=== PATIENT | female | born 1955 | race Caucasian/White ===

== ENCOUNTER → 2021-10-30 10:28 | Outpatient (CLI) | payer BC, SELFPAY ==
--- NOTE | ~2021-10-30 | XR_ITS ---
EXAMINATION: XR knee LT 2V DATE: 10/30/2021 10:52 INDICATION: Left knee pain. TECHNIQUE: 2 views of left knee standing were obtained. COMPARISON: None. FINDINGS: Bone alignment is normal. No fracture. There is mild tricompartmental osteoarthritis charac terized by tiny osteophytes. No joint space narrowing. There is a small knee joint effusion. IMPRESSION: 1. Mild left knee osteoarthritis. 2. Small left knee joint effusion. Reviewed, dictated and finalized at location A. [employer]SEM[employer]
== END ==
PROVIDERS: PCP Nurse Practitioner Family; Visit Provider Nurse Practitioner Family
DX: M25.562 Pain in left knee (principal); M17.12 Unilateral primary osteoarthritis, left knee; M25.462 Effusion, left knee
CPT/HCPCS: 73560

== ENCOUNTER → 2021-12-22 17:12 | Outpatient (CLI) | payer BC, SELFPAY ==
--- NOTE | ~2021-12-22 | MR_ITS ---
EXAMINATION: MR knee LT wo con DATE: 12/22/2021 18:03 INDICATION: Left knee pain TECHNIQUE: Magnetic resonance imaging (MRI) of the left knee was performed without intravenous contra st. Sequences included coronal PD-weighted FSE, coronal PD-weighted FS FSE, sagittal T2-weighted FSE , sagittal PD-weighted FS FSE and axial PD weighted fat saturated FSE. COMPARISON: Left knee radiographs dated 11/09/2021 FINDINGS: Medial compartment: Complex tear centered at the junction of the body and posterior horn of the medial meniscus which inc ludes both a vertical either radial or parrot beak configuration tear plane as well as and longitudin al horizontal component extending to the superior articular surface extending laterally from the vert ical tear into the medial side of the posterior horn. Partial-thickness chondral ulceration and deep fissuring along the anterior weightbearing medial femoral condyle with mild underlying cortical irreg ularity and edema-like marrow signal change. Additional partial thickness chondral ulceration along t he medial margin of the medial tibial plateau. There is extensive subarticular edema-like signal sauceda ge underlying much of the medial tibial plateau which appears disproportionate to the relatively mild appearing chondromalacia. There does however. The subtle concavity to the articular cortex which sug gests subarticular stress fracture potentially related to altered stress distribution resulting from the meniscal tear. Lateral compartment: Lateral meniscus is normal. Articular cartilage is normal. Patellofemoral compartment: Deep chondral fissure with underlying subarticular edema-like marrow signal change at the patellar ap ical ridge. Trochlear cartilage is normal. Ligaments and tendons: Anterior and posterior cruciate ligaments are normal. The medial collateral ligament and fibular jen ateral ligament complex are normal. Mild distal quadriceps tendinopathy. Patellar tendon is normal. T he visualized medial and lateral hamstring tendons as well as the iliotibial band are normal. Fluid: Physiologic amount of fluid in the joint space. No loose osteochondral bodies identified. Moderate-si zed likely partially ruptured Vásquez's cyst measuring 5.3 cm craniocaudally and 1.8 x 1.1 cm in nura l transaxial dimensions with small amount of nonloculated fluid tracking caudally along the periphery of the medial head of the gastrocnemius muscle and the pes anserinus.. Osseous/other: Bone alignment is normal. No pathologic marrow replacing process. IMPRESSION: 1. Complex medial meniscal tear. 2. Prominent marrow edema along the medial aspect of the medial tibial plateau which appears dispropo rtionate to the relatively mild chondromalacia and with subtle concavity to the articular cortex sugg esting minimal depression of a subarticular stress fracture potentially related to altered stress dis tribution resulting from the meniscal tear. 3. Mild osteoarthritis in the medial and patellofemoral compartments with high-grade chondromalacia a t the patellar apical ridge and more extensively along the anterior weightbearing medial femoral cond yle. 4. Likely partially ruptured moderate-sized Vásquez's cyst. Reviewed, dictated and finalized at location A. IMPRESSION: 1. Complex medial meniscal tear. 2. Prominent marrow edema along the medial aspect of the medial tibial plateau which appears disproportionate to the relatively mild chondromalacia and with s ubtle concavity to the articular cortex suggesting minimal depression of a suba rticular stress fracture potentially related to altered stress distribution res ulting from the meniscal tear. 3. Mild osteoarthritis in the medial and patellofemoral compartments with high- grade chondrom
== END ==
PROVIDERS: PCP Family Medicine; Visit Provider Nurse Practitioner Family
DX: S83.242A Other tear of medial meniscus, current injury, left knee, initial encounter (principal); M17.12 Unilateral primary osteoarthritis, left knee; M71.22 Synovial cyst of popliteal space [Baker], left knee
CPT/HCPCS: 73721

== ENCOUNTER 2022-02-12 10:05 | Outpatient (CLI) | payer BC, SELFPAY ==
--- NOTE | 2022-02-12 10:24 | ECG_ITS ---
Measurements Intervals [place] Rate: 70 P: 48 CO: 197 QRS: -11 QRSD: 124 T: 113 QT: 421 QTc: 456 Interpretive Statements SINUS RHYTHM LEFT BUNDLE BRANCH BLOCK ABNORMAL ECG NO PREVIOUS ECG AVAILABLE FOR COMPARISON Electronically Signed On 02-12-2022 14:37:35 CDT by Jelani Zaidi M.D.
[2022-02-12 11:37] LABS: Anion Gap 5 mmol/L (8-16); Blood Urea Nitrogen 20 mg/dL (7-17); Calcium 8.6 mg/dL (8.4-10.2); Carbon Dioxide 27 mmol/L (22-30); Chloride 107 mmol/L (98-107); Estimated Glomerular Filt Rate > 60; Glucose 94 mg/dL (65-110); Potassium 4.1 mmol/L (3.4-5.0); Sodium 139 mmol/L (137-145)
== END 2022-02-12 10:06 | disposition home or self-care (01) ==
LOC: ANHSURGERY 10:13
PROVIDERS: Anesthesiology; PCP Family Medicine; Visit Provider Orthopaedic Surgery
DX: Z01.818 Encounter for other preprocedural examination (principal); I10 Essential (primary) hypertension; R94.31 Abnormal electrocardiogram [ECG] [EKG]
CPT/HCPCS: 36415; 80048; 93005

== ENCOUNTER 2022-03-14 08:30 | Outpatient (CLI) | payer BC, SELFPAY ==
--- NOTE | 2022-03-14 09:02 | ECHO_ITS ---
Patient Info Name: Arti Rodas Age: 66 years : 1955 Gender: Female Ht: 60 in Wt: 155 lbs BSA: 1.75 m2 HR: 66 bpm BP: 133 / 73 mmHg Technical Quality: Good Exam Date: 03/14/2022 9:37 AM Exam Location: [facility] Patient Status: Outpatient Admit Date: 03/14/2022 Staff Ordering Physician: More Frazier [employer] Appraiser: Shayy Gutiérrez RCS Attending Provider: More Frazier Referring Physician: Karin CRENSHAW; Exam Type: CA echo doppler color flow Study Info Indications R01.1 - Cardiac murmur, unspecified Complete two-dimensional, color flow and Doppler transthoracic echocardiogram is performed. Summary 1. Complete two-dimensional, color flow and Doppler transthoracic echocardiogram is performed. 2. Left ventricular chamber dimension is normal. 3. Left ventricular systolic function is normal, estimated at 60-65%. 4. The left ventricular diastolic function is grade I diastolic dysfunction. 5. E/e' 8 is minimally elevated. 6. Global longitudinal strain is normal at -20.0%. 7. There is mild aortic valve sclerosis. 8. There is trace aortic valve regurgitation. 9. There is trace mitral valve regurgitation. 10. There is trace tricuspid valve regurgitation. 11. No pulmonary hypertension, estimated pulmonary arterial systolic pressure is 28 mmHg. Left Ventricle E/e' 8 is minimally elevated. Global longitudinal strain is normal at -20.0%. Left ventricular chamber dimension is normal. Left ventricular systolic function is normal, estimated at 60-65%. The left ventricular diastolic function is grade I diastolic dysfunction. Right Ventricle Right ventricular systolic function is normal and with normal TAPSE 2.3 cm. Right ventricular chamber dimension is normal. Left Atria Left atrial chamber dimension is normal. Right Atria Right atrial chamber dimension is normal. Aortic Valve The aortic valve is trileaflet. There is mild aortic valve sclerosis. There is no aortic valve stenosis. There is trace aortic valve regurgitation. Pulmonic Valve There is no pulmonic regurgitation. Mitral Valve There is no mitral valve stenosis. There is trace mitral valve regurgitation. Tricuspid Valve There is trace tricuspid valve regurgitation. No pulmonary hypertension, estimated pulmonary arterial systolic pressure is 28 mmHg. Pericardium/Pleural There is no pericardial effusion. Inferior Vena Cava Normal inferior vena cava with >50% collapse upon inspiration consistent with normal right atrial pressure, 5 mmHg. Aorta The aortic root size at the sinus of Valsalva is normal. Left Ventricular Outflow Tract Name Value Normal LVOT 2D LVOT Diameter 2.0 cm LVOT Doppler LVOT Peak Gradient 6 mmHg LVOT Mean Gradient 3 mmHg LVOT VTI 26 cm LVOT VTI/AV VTI Ratio 0.6 LVOT Stroke Volume 85 ml LVOT CO 17.3 l/min LVOT CI 9.9 l/min/m2 Pulmonic Valve
== END 2022-03-14 08:31 | disposition home or self-care (01) ==
PROVIDERS: PCP Family Medicine; Visit Provider Nurse Practitioner Family
DX: R01.1 Cardiac murmur, unspecified (principal); I70.0 Atherosclerosis of aorta
CPT/HCPCS: 93306

== ENCOUNTER 2022-04-26 08:38 | Outpatient (CLI) | payer BC, SELFPAY ==
--- NOTE | ~2022-04-26 | NM_ITS ---
EXAMINATION: NM wanda stress w perfusion DATE: 04/26/2022 13:24 INDICATION: Dyspnea TECHNIQUE: Rest images were obtained following intravenous administration of 10.351 mCi Tc99m tetrofo smin (Myoview). The patient was infused intravenously with Lexiscan (Regadenoson). Then, 32 mCi Tc99m tetrofosmin (Myoview) was administered intravenously, and stress images were obtained. Data was romulo nstructed into short axis and horizontal and vertical long axis SPECT images. Gated SPECT images were also obtained. COMPARISON: None. FINDINGS: There is no definite reversible or fixed perfusion abnormality to suggest ischemia or infar ction. There is normal left ventricular chamber size, wall motion and ejection fraction. Left ventr icular ejection fraction measures >70%. IMPRESSION: 1. Normal myocardial perfusion at rest and during stress. 2. Left ventricular ejection fraction measuring >70%. Reviewed, dictated and finalized at location A.
--- NOTE | 2022-04-26 08:47 | EST_ITS ---
Patient Info Name: Arti Rodas Age: 67 years : 1955 Gender: Female Ht: 61 in Wt: 158 lbs BSA: 1.78 m2 Exam Date: 04/26/2022 9:55 AM Exam Location: [facility] Stress Patient Status: Outpatient Admit Date: 04/26/2022 Staff Ordering Physician: John Hernandez DO Attending Provider: John Hernandez DO Exercise Technologist: Sarah Lala RDCS Exercise Physician: John Hernandez DO Exam Type: CA stress wanda w NM Study Info Indications R06.09 - Other forms of dyspnea A regadenoson stress test was performed. Summary 1. 1. Inconclusive lexiscan stress test for ischemic ST changes by ECG criteria due to baseline LBBB. 2. 2. Baseline hypertension. 3. 3. Nuclear scan to follow and will be reported separately. Please correlate with it. 4. 4. Patient informed of the above results. Protocol: Lexiscan Stress ECG Details Stage: REST Duration (min): 1 min : 47 sec HR (bpm): 64 SBP (mmHg): 152 DBP (mmHg): 71 Stage: REST Duration (min): 23 min : 50 sec HR (bpm): 88 SBP (mmHg): 152 DBP (mmHg): 71 Stage: STAGE 1 Duration (min): 0 min : 59 sec HR (bpm): 116 SBP (mmHg): 152 DBP (mmHg): 71 Stage: RECOVERY Duration (min): 1 min : 0 sec HR (bpm): 115 SBP (mmHg): 143 DBP (mmHg): 60 Stage: RECOVERY Duration (min): 2 min : 0 sec HR (bpm): 109 SBP (mmHg): 153 DBP (mmHg): 63 Stage: RECOVERY Duration (min): 3 min : 0 sec HR (bpm): 106 SBP (mmHg): 146 DBP (mmHg): 62 Stage: RECOVERY Duration (min): 4 min : 0 sec HR (bpm): 94 SBP (mmHg): 146 DBP (mmHg): 62 Stage: RECOVERY Duration (min): 5 min : 0 sec HR (bpm): 93 SBP (mmHg): 146 DBP (mmHg): 62 Stage: RECOVERY Duration (min): 5 min : 18 sec HR (bpm): 93 SBP (mmHg): 136 DBP (mmHg): 62 Rest HR: 88 bpm Peak HR: 119 bpm Rest Sys BP: 152 mmHg Peak Sys BP: 153 mmHg Max Pred HR: 154 bpm % Max Pred HR: 77 % Target HR: 131 bpm Max RPP: 18,207 bpm*mmHg Termination Reason: Completed protocol Cardiac Symptoms: Shortness of breath Total Time: 1 min : 0 sec Rest Bennett BP: 71 mmHg Peak Bennett BP: 63 mmHg Total Dose: 0.4 mg Resting ECG Sinus rhythm, LBBB. Stress ECG No ST changes. Arrhythmias None. Report Signatures
== END 2022-04-26 08:39 | disposition home or self-care (01) ==
PROVIDERS: PCP Family Medicine; Visit Provider Internal Medicine Cardiovascular Disease
DX: R06.09 Other forms of dyspnea (principal)
CPT/HCPCS: 78452; 93017; A9502; J2785

== ENCOUNTER 2022-05-07 08:15 | Outpatient (CLI) | payer BC, SELFPAY ==
[2022-05-07 09:05] LABS: Anion Gap 11 mmol/L (8-16); Blood Urea Nitrogen 20 mg/dL (7-17); Calcium 9.1 mg/dL (8.4-10.2); Carbon Dioxide 24 mmol/L (22-30); Chloride 104 mmol/L (98-107); Estimated Glomerular Filt Rate > 60; Glucose 107 mg/dL (65-110); Sodium 139 mmol/L (137-145)
== END 2022-05-07 08:16 | disposition home or self-care (01) ==
LOC: ANHSURGERY 08:22
PROVIDERS: Anesthesiology; PCP Family Medicine; Visit Provider Orthopaedic Surgery
DX: Z01.818 Encounter for other preprocedural examination (principal); Z79.899 Other long term (current) drug therapy
CPT/HCPCS: 36415; 80048

== ENCOUNTER 2022-05-09 00:20 | Day surgery (SDC) | payer BC, OTHER, SELFPAY ==
[2022-05-03 14:46] VITALS: BMI 29.6
--- NOTE | 2022-05-03 14:51 | PC.NURSE ---
Report to the Outpatient Waiting Room, entrance under the green pavilion located off [facility], at time _0900_ on date _05/09/22_. OR Time: _1100_. Time changes happen often and if your time is changed the preop area will call you the afternoon before. - You and your visitor will be asked to self-screen and do not enter if you have any COVID symptoms. - Only one visitor and NO children visitors are allowed at this time. - The patient visitor is requested to leave or wait in car when not with patient due to restrictions. - A mask is required within the hospital. Patients may have clear liquids (water, carbonated beverages, clear teas, apple juice) until 3 hours prior to surgery ( 0800 AM) with a maximum of 20 ounces. - No food from midnight until time of surgery - Infants may have breast milk until 4 hours before surgery, formula 6 hours prior to surgery. - Children will be allowed to drink immediately following surgery. If applicable, please bring a bottle or sippy cup to assist with drinking. Juice, water, soda, and popsicles are readily available. For infants on formula, please bring formula the day of surgery. Pacifiers are allowed. Take the following medications with a SIP of water the morning of surgery: _TYLENOL IF NEEDED_ Medications to discontinue _MELOXICAM PER DR. RODRIGEZ'S INSTRUCTIONS_ Please no make-up, nail croatian, hairspray, perfume, deodorant, or body powder the day of surgery. No jewelry (including any body piercings) or valuables the day of surgery, leave them at home. Please take a shower or bath the night before, or the morning of, surgery with an antibacterial soap. Wear comfortable, loose fitting clothing. Children are encouraged to wear pajamas. - Jewelry must be removed prior to entering the operating room. Rings and piercings that are not removed may be cut off. - The hospital will not accept responsibility for valuables. - Please leave all valuables, including medications, at home the day of surgery. If you are going home after surgery, a licensed driver guide must drive you home. - NO public transportation without another adult. - We recommend that an adult stay with you for 24 hours following discharge. - We also recommend that you do not drive, make important decision, drink alcoholic beverages, or take any drugs that were not prescribed by your health care provider for at least 24 hours after your discharge time. For Pediatric surgeries, we recommend two adults accompany the child home (only one inside the building at this time). Follow any additional instructions given to you from your surgeon. If you or anyone in your household have experienced Covid symptoms in the past week, please notify your surgeon or the nurse liaison at the phone number below for possible testing. Telephone instructions given to _PT_and asked if any additional questions and then verbalized understanding. Patient advised to call surgeon office or pre surgery nurse liaison [phone] if any additional questions.
[2022-05-09] VITALS (10 sets, daily range): BP systolic 136–165; BP diastolic 56–86; PULSE 54–78; RESP 10–20; TEMP 36.9–37.1; O2SAT 98–100
--- NOTE | 2022-05-09 07:13 | WPDHPUPDATE1 ---
History and Physical Update Update Date/Time: 05/09/22 07:13 History and Physical has been reviewed, including an updated exam of the patient. There are NO changes in the patient's condition. Risks, benefits, and alternatives have been discussed and questions answered. Patient agrees to proceed with procedure.
--- NOTE | 2022-05-09 07:43 | WPDANESEPPF ---
Anes - Initial Pre Proc Eval Procedure: Operation Date: 05/09/22 11:00 Proposed Procedures p Left Knee Arthroscopy - Hussain Rutherford MD Date/Time: 05/09/22 07:43 Surgeon: Hussain Rutherford MD Pre Op Diagnosis: Lt Knee Medial Meniscus Tear Patient Data Age: 67 Gender: F Height: 1.54 m Weight: 70 kg Allergies Allergy/AdvReac Type Severity Reaction Status Date / Time No Known Allergies Allergy Unknown Verified 05/03/22 14:46 Home Medications Medication Instructions Recorded Confirmed Type adalimumab 40 mg/0.8 mL 40 mg subcut [id number] 09/21/19 05/03/22 History subcutaneous syringe kit (Humira) acetaminophen 650 mg 1,300 mg PO Q12H PRN Pain 02/02/22 05/03/22 History tablet,extended release losartan 100 1 tablet PO QAM hypertension 02/02/22 05/03/22 History mg-hydrochlorothiazide 12.5 mg tablet (Hyzaar) meloxicam 15 mg tablet 15 mg PO DAILY PRN Pain 02/02/22 05/03/22 History psyllium husk 3.4 gram/5.4 gram 1 tbsp PO DAILY PRN Constipation 02/02/22 05/03/22 History oral powder (Metamucil) omega 7-mmy-nol-fish oil 1,000 mg 2 cap PO DAILY 05/03/22 05/03/22 History (120 mg-180 mg) capsule (Fish Oil) Patient hx anesthesia problems: none Family hx anesthesia problems: none Results Review: All pre-operative results and documents have been reviewed as part of the pre-operative evaluation. [facility] Past Medical History Medical History (Updated 05/03/22 @ 11:54 by AMY Webb) Abnormal EKG Abnormality of heart beat Acute meniscal tear of knee BMI 30.0-30.9,adult ROYAL (dyspnea on exertion) Essential (primary) hypertension Follicle cyst History of adverse reaction to anesthesia Hypersomnia Hypertension Kidney stones LBBB (left bundle branch block) Left knee pain Medial meniscus tear Murmur Ocular hypertension, unspecified eye DONNA (obstructive sleep apnea) Preop cardiovascular exam Preoperative clearance Psoriasis Psoriasis Wears glasses Surgical History Surgical History History of cholecystectomy History of endometrial ablation History of extraction of renal calculus Family History Family History Father Alzheimers disease Mother Diabetes mellitus Heart disease Sibling Diabetes mellitus Gout COVID-19 Sibling Hypertension Other Arthritis Social History Social History Smoking status: Never smoker Second hand tobacco smoke exposure: No Alcohol intake: never Substance use: never Substance use type: does not use Living arrangements: with family Additional living arrangements comments: [facility] Additional occupation/education comments: [employer]. Gender identity (if verbalized by the patient): Female Spiritual care concerns: No Anes - Eval Final PreProcedure Day of Procedure 05/09/22 07:43 Patient weight: overweight Heart: regular rate and rhythm Lungs: clear to auscultation Airway: Mallampati scale class II Neurological: alert and oriented Last oral intake: >/= 8 hours ASA classification: III Emergent: no Anesthetic plan: proceed Anesthesia type and monitoring: general LMA and standard monitoring Results Review: All pre-operative results and documents have been reviewed as part of the pre-operative evaluation. Informed Consent: The patient's anesthetic plan and its attendant risks and benefits were discussed with the patient/family/POA. Questions were solicited and answers provided to the satisfaction of the patient/family/POA.
[2022-05-09] MEDS: LACTATED RINGERS 1,000 ML 30 ML IV CONT (10:20)
[2022-05-09] MEDS: ACETAMINOPHEN 500 MG TABLET 1000 MG PO (10:20)
[2022-05-09] MEDS: CELECOXIB 200 MG CAPSULE PO (10:20)
[2022-05-09] MEDS: SCOPOLAMINE 1.5 MG PATCH TRANSDERM (10:56)
[2022-05-09] MEDS: ceFAZolin 2 GM/D5W 50 ML 2 GM/50 ML BAG IVPB (10:59)
[2022-05-09] MEDS: BUPIVACAINE HCL 0.5% PF 30 ML VIAL INFILTRATE (11:28)
--- NOTE | 2022-05-09 12:36 | W.PM.PROC2 ---
Procedure Note - Detailed Date of Procedure 05/09/22 Pre-op Diagnosis Lt Knee Medial Meniscus Tear Post-op Diagnosis Same Procedure Performed LEFT KNEE SCOPE Surgeon Hussain Rutherford MD Anesthesia General Description of Procedure PATIENT WAS TAKEN TO THE OR. LEFT LEG WAS PREPPED AND DRAPED STERILE. TROCARS WERE PLACED IN THE USUAL FASHION. CAMERA WAS INTRODUCED. THERE WAS CHONDROMALACIA TO THE PATELLA FEMORAL JOINT. THERE WAS A LOT OF SYNOVITIS IN ALL COMPARTMENTS. THE MEDIAL COMPARTMENT SHOWED CHONDROMALACIA TO THE MEDIAL FEMORAL CONDYLE. A SHAVER WAS USED TO PREFORM A CHONDROPLASTY. THERE WAS A COMPLEX MEDIAL MENISCUS TEAR. THE TEAR WAS RESECTED WITH A BITER AND A SHAVER DOWN TO A SMOOTH BASE. ABOUT 30% OF THE MENISCUS WAS REMOVED. THE ACL WAS INTACT. THE LATERAL MENISCUS WAS NOT TORN. THE LAT COMPARTMENT HAD MINIMAL CHONDROMALACIA. A SYNOVECTOMY WAS PREFORMED WELL. THE PATELLO FEMORAL JOINT UNDERWENT CHONDROPLASTY. THERE WAS GRADE 2 CHONDROMALACIA IN PART OF THE PATELLA. SYNOVECTOMY WAS PREFORMED IN THE SUPERIOR MEDIAL COMPARTMENT. THE WOUNDS WERE APPROXIMATED WITH 4.0 NYLON. STERILE DRESSING WAS APPLIED. PATIENT WAS EXTUBATED. Estimated Blood Loss -5.0 Complications No immediate complications Condition Stable Disposition PACU
[2022-05-09] MEDS: oxyCODONE HCL (*CRX) 5 MG TAB IR PO (13:39)
== END 2022-05-09 14:37 | disposition home or self-care (01) ==
PROVIDERS: PCP Family Medicine; Visit Provider Orthopaedic Surgery
PROC: (CPT 29870; principal; 2022-05-09 11:00)
DX: M23.332 Other meniscus derangements, other medial meniscus, left knee (principal); M94.262 Chondromalacia, left knee; M65.862 Other synovitis and tenosynovitis, left lower leg; I10 Essential (primary) hypertension; G47.33 Obstructive sleep apnea (adult) (pediatric); L40.9 Psoriasis, unspecified; I44.7 Left bundle-branch block, unspecified; Z79.899 Other long term (current) drug therapy
CPT/HCPCS: 29881; A9270; J0690; J1100; J2405; J2704; J3010; J7120

== ENCOUNTER 2022-06-05 07:18 | Outpatient (CLI) | payer BC, OTHER, SELFPAY ==
--- NOTE | 2022-06-25 12:12 | WPDHOMESLEEP ---
Sleep Study - Home Unattended Date of Study: 06/05/22 Ordering Provider: John Hernandez DO Interpreting Provider: Cait Barillas DO Home Sleep Study Type: Watch PAT Height: 1.55 m Weight: 72.575 kg Body Mass Index: 30.2 Neck Circumference (inches): 13.75 [place]: 8 Reason for Sleep Study Snoring, daytime hypersomnia Sleep History The patient is a 67-year-old female with hypertension and psoriasis that had a sleep study ordered by her backup operator for evaluation of sleep apnea. The patient denies awakening from sleep short of breath. She rarely awakens at night with heartburn, belching or cough. She frequently snores but is rarely loud enough that others complain. She occasionally has trouble sleeping when she has a cold. She denies waking up gasping for air throughout the night. She occasionally has breathing problems at night observed by herself or others. She denies sweating excessively at night. She rarely has heart palpitations or irregular heartbeats during the night. She occasionally falls asleep during the day but never while driving. He denies sleep paralysis and cataplexy. She denies having trouble at school or work due to sleepiness. She occasionally experiences vivid dreamlike scenes upon awakening or falling asleep. She denies feeling afraid of going to sleep. She rarely has nightmares. She occasionally remembers her dreams. She occasionally has thoughts racing through her mind. She denies feeling sad or depressed. She rarely has anxiety. She denies having muscular tension. She denies noticing parts of her body jerk. She rarely kicks during the night. She denies having crawling and aching feelings in her legs but will rarely has leg pain during the night. She occasionally grinds her teeth during sleep but rarely awakens with morning jaw pain. She is rarely bothered by pain during the day and never awakened by pain during the night. She rarely wakes up feeling stiff in the morning. She rarely wakes up with sore or achy muscles. She rarely wakes up with pain in the neck, spine or other joints. She goes to bed between 10-11 p.m. on weekdays and between midnight to 1:00 a.m. on the weekends. It takes her 20 minutes to fall asleep. He wakes up 2-3 times throughout the night to urinate. She is able to fall back asleep within 10-15 minutes. She wakes up at 4:40 a.m. on weekdays and between 7-8 a.m. on the weekends. She typically gets 6-7 hours of sleep per night. She will stay in bed for 10-15 minutes after waking up in the morning. She currently lives with her . She does not consume any caffeinated beverages within 2 hours of bedtime. She will engage in physical exercise before bedtime. She will read before falling asleep. She will take naps in the afternoon or the evening and they are refreshing. He drinks 1 16 oz caffeinated tea occasionally. She denies tobacco, alcohol and recreational drug use. [facility] Past Medical History Medical History Abnormal EKG Abnormality of heart beat Acute meniscal tear of knee BMI 30.0-30.9,adult ROYAL (dyspnea on exertion) Essential (primary) hypertension Follicle cyst History of adverse reaction to anesthesia Hypersomnia Hypertension Kidney stones LBBB (left bundle branch block) Left knee pain Medial meniscus tear Murmur Ocular hypertension, unspecified eye DONNA (obstructive sleep apnea) Preop cardiovascular exam Preoperative clearance Psoriasis Psoriasis Wears glasses Surgical History Surgical History History of cholecystectomy History of endometrial ablation History of extraction of renal calculus Family History Family History Father Alzheimers disease Mother Diabetes mellitus Heart disease Sibling Diabetes mellitus Gout COVID-19 [place]
[2022-06-25 12:28] VITALS: BMI 30.2
== END 2022-06-06 13:52 | disposition home or self-care (01) ==
PROVIDERS: PCP Family Medicine; Visit Provider Internal Medicine Cardiovascular Disease
DX: G47.10 Hypersomnia, unspecified (principal)
CPT/HCPCS: 95800

== ENCOUNTER 2023-05-06 08:32 | Outpatient (CLI) | payer MEDICARE, OTHER, SELFPAY ==
[2023-05-06 09:31] LABS: Alanine Aminotransferase 28 U/L (6-35); Creatine Kinase 165 U/L (30-135)
== END 2023-05-06 08:33 | disposition home or self-care (01) ==
PROVIDERS: PCP Family Medicine; Visit Provider Nurse Practitioner Family
DX: Z79.899 Other long term (current) drug therapy (principal)
CPT/HCPCS: 36415; 82550; 84460

== ENCOUNTER → 2023-07-04 10:03 | Outpatient (CLI) | payer MEDICARE, OTHER, SELFPAY ==
--- NOTE | ~2023-07-04 | DEXA_ITS ---
Bone Density Report Name: MARINA PALMA Age: 68 Sex: Female Ethnicity: White Date of : 1955 Indication: postmenopausal; screening for osteoporosis; parental hip fracture; prior fracture; Referring Provider: Lorenza Figueroa Study: Bone densitometry was performed. Exam Date: July 04, 2023 Accession number: [id number] Bone Density: Region BMD T-score Z-score Classification AP Spine (L1-L4) 0.854 -1.8 0.2 Osteopenia Femoral Neck (Left) 0.666 -1.6 0.0 Osteopenia Total Hip (Left) 0.782 -1.3 0.0 Osteopenia Femoral Neck (Right) 0.847 0.0 1.6 Normal Total Hip (Right) 0.858 -0.7 0.7 Normal Total Hip Mean 0.820 -1.0 0.4 Normal World Health Organization criteria for BMD impression classify patients as: Normal (T-score at or above -1.0), Osteopenia (T-score between -1.0 and -2.5), or Osteoporosis (T-score at or below -2.5). 10-year Fracture Risk(1): Major Osteoporotic Fracture 25% Hip Fracture 2.7% Reported Risk Factors: [place] (), Neck BMD=0.666, BMI=32.1, previous fracture, parental fracture (1) FRAX(R) Version 3.08. Fracture probability calculated for an untreated patient. Fracture probability may be lower if the patient has received treatment. Clinical Information Provided by Patient: Has had a low trauma fracture Parent has had a hip fracture Patient maximum height was 60.5 Menopause Age: 46 Drinks caffeinated beverages Onset of menses at age 14 Number of children 3 Impression: The patient has low bone mass, based on the Total Spine T-score. The patient has an estimated ten-year risk of hip fracture of 2.7% and an estimated ten-year risk of major fracture of 25%, based on the WHO FRAX algorithm. The patient has risk factors, including: parental hip fracture, previous fracture. Discussion: BONE DENSITY IS LOW AT ONE OR MORE SKELETAL SITES. THE PATIENT'S BMD AND CLINICAL RISK FACTORS CONTRIBUTE TO THIS PATIENT'S INCREASED RISK OF FRACTURE. This patient's lowest T-score is low at one or more skeletal sites. It meets the World Health Organization's (WHO) criteria for ?low bone mass? (T-score between -1.0 and -2.5). The patient's 10-year risk of a major osteoporotic fracture as calculated by FRAX exceeds the threshold where pharmacological therapy is recommended by the National Osteoporosis Foundation (NOF). However, all treatment decisions require clinical judgment and consideration of individual patient factors, including patient preferences, comorbidities, previous drug use, risk factors not captured in the FRAX model (e.g., frailty, falls, vitamin D deficiency, increased bone turnover, interval significant decline in bone density) and possible under or overestimation of fracture risk by FRAX. The patient should follow a healthful lifestyle (good nutrition with adequate calc
--- NOTE | ~2023-07-04 | MM_ITS ---
EXAMINATION: MM screening jennie BI w tom HISTORY: Screening TECHNIQUE: Craniocaudal and mediolateral oblique 3-D tomosynthesis images were obtained and synthetic 2-D images were generated. CAD analysis was submitted and interpreted. COMPARISON: No prior mammogram is available for comparison at this institution. BREAST PARENCHYMAL COMPOSITION: There are scattered areas of fibroglandular density. FINDINGS: There is no evidence of suspicious mass, calcification, or architectural distortion to sugg est malignancy in either breast. There has been no suspicious interval change. IMPRESSION: 1. No mammographic evidence of malignancy. 2. Recommend routine screening mammography in one year. BI-RADS Category 1: Negative Reviewed, dictated and finalized at location A. ISITION MARKETING COORDINATOR
== END ==
PROVIDERS: PCP Physician Assistant Medical; Visit Provider Physician Assistant Medical
DX: Z12.31 Encounter for screening mammogram for malignant neoplasm of breast (principal); Z78.0 Asymptomatic menopausal state; M85.89 Other specified disorders of bone density and structure, multiple sites
CPT/HCPCS: 77063; 77067; 77080

== ENCOUNTER 2024-10-05 11:59 | Outpatient (CLI) | payer MEDICARE, OTHER, SELFPAY ==
--- NOTE | 2024-10-05 12:10 | ECG_ITS ---
Test Date: 2024-10-05 12:21:30 Measurements Intervals [place] Rate: 61 P: 49 TN: 190 QRS: -20 QRSD: 137 T: 110 QT: 453 QTc: 459 Interpretive Statements SINUS RHYTHM LEFT BUNDLE BRANCH BLOCK ABNORMAL ECG No previous ECG available for comparison Electronically Signed On 10-05-2024 13:02:57 PUBLIC RELATIONS STUDIES DIRECTOR by John Hernandez D.O.
--- OUTSIDE RECORDS SUMMARY | 2024-10-05 12:27 | XMS_ITS | Clinical Summary ---
Author Organization [facility] [employer] Address [address] [place] [address] Care Team Providers Care Elephant Tamer Name Role Phone Eligio Chapman MD Primary Care Provider [phone] Source Comments [facility] [employer],non-owned Affiliates and Associated Physician Practices is amultiple site organization consisting of ambulatory clinics and hospital sitesin [place], [place], [place] and [place]. This disclosure is being madepursuant to the Care Everywhere program and may not contain all information available regarding this patient. Last updated 18.[employer] Allergies No known active allergies Medications * Be aware that medications may not be up to date on this document. Alwaysverify current medications with the patient. Medication Sig Dispensed Refills Start Date End Date Status losartan-hydroCH LOROthiazide (Hyzaar) 100-12.5 MG tablet Take 1 (one) tablet by mouth once daily 30 tablet 11 09/05/2022 Active rosuvastatin (Crestor) 20 MG tablet Do not take with milk, antacids, or iron.Take or use exactly as directed.Do not take if . 03/15/2023 Active losartan-hydroCH LOROthiazide (Hyzaar) 100-12.5 MG tablet Be careful if taking OTCs.Avoid exposure to sun.Take or use exactly as directed.Do not take if . 11/29/2022 Active alendronate (Fosamax) 70 MG tablet Take on empty stomach.Take only with water.Take with water first thing in AM. Stay up 30 min. 07/08/2023 Active vitamin D (Cholecaciferol) 125 MCG (5000 UT) capsule 07/08/2023 Active adalimumab (Humira, 2 Pen,) 40 MG/0.4ML injectionIndicat ions:Psoriasis Inject 0.4 mL subcutaneously every 14 days 0.8 mL 1 08/27/2024 Active pimecrolimus (Elidel) 1 % creamIndications :Psoriasis Apply to affected area on face BID as needed for rash. 30 day supply. Reasons: Psoriasis 60 g 2 09/18/2024 Active mometasone (Elocon) 0.1 % creamIndications :Psoriasis Apply to affected areas once daily as needed for rash. 30 days supply. 45 g 3 09/18/2024 Active mometasone (Elocon) 0.1 % creamIndications :Psoriasis Apply to affected areas once daily. 30 days supply. 45 g 3 05/06/2023 Discontinue d(Reorder) Active Problems No known active problems Encounters Date Type Department Care Team Description 09/18/2024 1:20 PM DOLL MAKER Office Visit [facility] - Dermatology [address] [place] [phone] Didi Blandon MD Psoriasis (Primary Dx); Encounter for long-term (current) use of high-risk medication 09/18/2024 Travel 08/27/2024 Refill [facility] - General Dermatology [address] , [facility] [address] [place] [address] Didi Blandon MD MEDICATION REFILL from Last 3 Months Social History Tobacco Use Types Packs/Day Years Used Date Smoking Tobacco: Never Assessed Sex and Gender Information Value Date Recorded Sex Assigned at Not on file Gender Identity Not on file Sexual Orientation Not on file Plan of Treatment Upcoming Encounters Date Type Department Care Team (Late st Contact Info) Description 09/23/2025 1:20 PM DOLL MAKER Office Visit [facility] - Dermatology [address] [place] [phone] Didi Blandon MD [address] [place] [address] [address] [place] [address] Health Maintenance Due Date Last Done Comments BONE DENSITY TESTING 1955 COLOGUARD (AGES 45-75) - COL ON CA SCREENING 1955 COLON MONITORING 1955 COLONOSCOPY - COLON CA SCREENING 1955 CT COLONOGRAPHY - COLON CA SCREENING 1955 Colorectal Cancer Screening 1955 FIT - COLON CA SCREENING 1955 FLEX SIG - COLON CA SCREENING 1955 LIPID TESTING 1955 MAMMOGRAM 1955 MEDICARE AWV 12 MONTHS 1955 HEPATITIS C SCREENING 03/24/1974 DTAP/TDAP/TD VACCINES (1 - Tdap) 1975 PNEUMOCOCCAL VACCINE 50+ (1 of 1 - PCV) 2006 ZOSTER VACCINE (1 of 2) 2006 COVID-19 VACCINE (1 - 2023-2 5 season) 2024 INFLUENZA VACCINE (#1) 2024 08/10/2006 DEPRESSION SCREENING 08/26/2024 Respiratory Syncytial Virus (RSV) Vaccine Pt: or over 60 yrs (1 - 1-dose 75+ series) 2031 HEPATITIS B VACCINE Aged Out No longe r eligible based on patient's age to complete this topic HIB VACCINE Aged Out No longer eligi ble based on patient's age to complete this topic HPV VACCINE Aged Out No longer eligi ble based on patient's age to complete this topic MENINGOCOCCAL (Group B) VACCINE Aged Out No longer eligible based on patient's age to complete this topic MENINGOCOCCAL VACCINE Aged Out No milagro ronaldo eligible based on patient's age to complete this topic Procedures Procedure Name Priority Date/Time Associated Diagnosis Comments QUANTIFERON-TB GOLD PLUS 1-TUBE 09/21/2024 9:14 AM DOLL MAKER from Last 3 Months Results * QUANTIFERON-TB GOLD PLUS 1-TUBE (09/21/2024 9:14 AM DOLL MAKER) QuantiFERON TB Gold Plus NEGATIVE NEGATIVE [facility] Comment: Negative test result. M. tuberculosis complex infection unlikely. NIL 0.09 IU/mL [facility] MITOGEN MINUS NIL RESULT 6.51 IU/mL [facility] TB1-NIL 0.10 IU/mL [facility] TB2-NIL 0.01 IU/mL [facility] Comment: The Nil tube value reflects the background interferon gamma immune response of the patient's blood sample. This value has been subtracted from the patient's displayed TB and Mitogen results. Lower than expected results with the Mitogen tube prevent false-negative Quantiferon readings by detecting a patient with a potential immune suppressive condition and/or suboptimal pre-analytical specimen handling. The TB1 Antigen tube is coated with the M. tuberculosis-specific antigens designed to elicit responses from TB antigen primed CD4+ helper T-lymphocytes. The TB2 Antigen tube is coated with the M. tuberculosis-specific antigens designed to elicit responses from TB antigen primed CD4+ helper and CD8+ cytotoxic T-lymphocytes. For additional information, please refer to https://education.[employer]/faq/IZM805 (This link is being provided for informational/ educational purposes only.) Test Performed at: [facility] [address] [place] [address] CORNELIA DAHL MD 09/21/2024 9:14 AM DOLL MAKER 09/21/2024 9:14 AM DOLL MAKER Ddii Blandon MD LAB - CHEMISTR Y ORDERABLES Performing Organization Address City/State/[facility] Co de Phone Number [facility] [address] [place] [address] from Last 3 Months Care Teams Elephant Tamer Relationship Specialty Start Date End Date Eligio Chapman MD [address] [place] [address] PCP - General 07/09/22
--- OUTSIDE RECORDS SUMMARY | 2024-10-05 12:27 | XMS_ITS | Encounter Summary ---
Author Organization [facility] Health Address [facility] [facility] [place] [address] Care Team Providers Care Router Operator Pin Name Role Phone Eligio Chapman MD Primary Care Provider [phone] Reason for Visit * Reason Onset Date Comments MEDICATION REFILL 01/05/2024 Encounter Details Date Type Department Care Team (Late Contact Info) Description 01/05/2024 Refill [facility] - Dermatology [facility] [place] [phone] Didi Blandon MD [address] [place] [address] [place] [phone] MEDICATION REFILL Social History Tobacco Use Types Packs/Day Years Used Date Smoking Tobacco: Never Assessed Sex and Gender Information Value Date Recorded Sex Assigned at Not on file Gender Identity Not on file Sexual Orientation Not on file documented as of this encounter Plan of Treatment Upcoming Encounters Date Type Department Care Team (Late Contact Info) Description 09/23/2025 1:20 PM UNIVERSITY RELATIONS RECRUITER Office Visit [facility] - Dermatology [address] [place] [phone] Didi Blandon MD [address] [place] [address] [place] [phone] documented as of this encounter Visit Diagnoses Diagnosis Psoriasis Other psoriasis documented in this encounter Care Teams Router Operator Pin Relationship Specialty Start Date End Date Eligio Chapman MD [address] [place] [address] PCP - General 07/09/22 documented as of this encounter
--- OUTSIDE RECORDS SUMMARY | 2024-10-05 12:27 | XMS_ITS | Referral Summary ---
Author Organization [facility] [employer] Address [address] [facility] [place] [address] Care Team Providers Care Operations Inspector Name Role Phone Eligio Chapman MD Primary Care Provider [phone] Source Comments [facility] [employer],non-owned Affiliates and Associated Physician Practices is amultiple site organization consisting of ambulatory clinics and hospital sitesin [place], [place], [place] and [place]. This disclosure is being madepursuant to the Care Everywhere program and may not contain all information available regarding this patient. Last updated 18.[facility] [employer] Encounters Date Type Department Care Team Description 09/18/2024 Travel 09/18/2024 1:20 PM DRAFTER (CAD) ELECTRONIC Office Visit [facility] - Dermatology [address] [facility] [address] [facility] [place] [address] Didi Blandon MD Psoriasis (Primary Dx); Encounter for long-term (current) use of high-risk medication 08/27/2024 Refill [facility] - General Dermatology [address], [address] [place] [address] Didi Blandon MD MEDICATION REFILL from Last 3 Months Allergies No known active allergies Medications * [...] d(Reorder) Active Problems No known active problems Social History Tobacco Use Types Packs/Day Years Used Date Smoking Tobacco: Never Assessed Sex and Gender Information Value Date Recorded Sex Assigned at Not on file Gender Identity Not on file Sexual Orientation Not on file Plan of Treatment Upcoming Encounters Date Type Department Care Team (Late st Contact Info) Description 09/23/2025 1:20 PM DRAFTER (CAD) ELECTRONIC Office Visit [facility] - Dermatology [address] [place] [address], [facility] [place] [address] Didi Blandon MD [address] [place] [address] [place] [address] Procedures Procedure Name Priority Date/Time Associated Diagnosis Comments QUANTIFERON-TB GOLD PLUS 1-TUBE 09/21/2024 9:14 AM DRAFTER (CAD) ELECTRONIC from Last 3 Months Results * QUANTIFERON-TB GOLD PLUS 1-TUBE (09/21/2024 9:14 AM DRAFTER (CAD) ELECTRONIC) Pathologist [facility] QuantiFERON TB Gold Plus NEGATIVE NEGATIVE [facility] [...] T-lymphocytes. For additional information, please refer to https://education.[employer]/faq/NYW474 (This link is being provided for informational/ educational purposes only.) Test Performed at: [facility] [address] [place] [address] CORNELIA DAHL MD 09/21/2024 9:14 AM DRAFTER (CAD) ELECTRONIC 09/21/2024 9:14 AM DRAFTER (CAD) ELECTRONIC Didi Blandon MD LAB - CHEMISTR Y ORDERABLES [facility] [address] [place] [address] from Last 3 Months Care Teams Operations Inspector Relationship Specialty Start Date End Date Eligio Chapman MD [address] [place] [address] PCP - General 07/09/22
--- OUTSIDE RECORDS SUMMARY | 2024-10-05 12:27 | XMS_ITS | Patient Health Summary ---
Author Organization [facility] [employer] Address [address] [place] [address] Care Team Providers Care Plastic And Reconstructive Surgeon Name Role Phone Eligio Chapman MD Primary Care Provider [phone] Note from [facility],non-owned Affiliates and Associated Physician Practices is amultiple site organization consisting of ambulatory clinics and hospital sitesin [place], [place], [place] and [place]. This disclosure is being madepursuant to the Care Everywhere program and may not contain all information available regarding this patient. Last updated 18.[facility] Allergies No known active allergies Medications * Be aware that medications may not be up to date on this document. Alwaysverify current medications with the patient. * losartan-hydroCHLOROthiazide (Hyzaar) 100-12.5 MG tablet(Started 09/05/2022) Take 1 (one) tablet by mouth once daily 11 refills remaining * rosuvastatin (Crestor) 20 MG tablet(Started 03/15/2023) Do not take with milk, antacids, or iron.Take or use exactly as directed.Do not take if . * losartan-hydroCHLOROthiazide (Hyzaar) 100-12.5 MG tablet(Started 11/29/2022) Be careful if taking OTCs.Avoid exposure to sun.Take or use exactly as directed.Do not take if . * alendronate (Fosamax) 70 MG tablet(Started 07/08/2023) Take on empty stomach.Take only with water.Take with water first thing in AM. Stay up 30 min. * vitamin D (Cholecaciferol) 125 MCG (5000 UT) capsule(Started 07/08/2023) * adalimumab (Humira, 2 Pen,) 40 MG/0.4ML injection(Started 08/27/2024) Inject 0.4 mL subcutaneously every 14 days 1 refill by 08/27/2025 * pimecrolimus (Elidel) 1 % cream(Started 09/18/2024) Apply to affected area on face BID as needed for rash. 30 day supply. Reasons: Psoriasis 2 refills by 09/18/2025 * mometasone (Elocon) 0.1 % cream(Started 09/18/2024) Apply to affected areas once daily as needed for rash. 30 days supply. 3 refills by 09/18/2025 Ended Medications* mometasone (Elocon) 0.1 % cream(Started 05/06/2023) (Discontinued) Apply to affected areas once daily. 30 days supply. 3 refills by 05/05/2024 Active Problems No known active problems Social History Tobacco Use Types Packs/Day Years Used Date Smoking Tobacco: Never Assessed Sex and Gender Information Value Date Recorded Sex Assigned at Not on file Gender Identity Not on file Sexual Orientation Not on file Procedures * QUANTIFERON-TB GOLD PLUS 1-TUBE(Performed 09/21/2024) * QUANTIFERON-TB GOLD PLUS 1-TUBE(Performed 09/13/2023) Performed for Psoriasis, Encounter for long-term (current) use of high-risk medication * DERMATOPATHOLOGY(Performed 05/16/2016) * GROSS + MICRO EXAM(Performed 06/04/2003) Results * QUANTIFERON-TB GOLD PLUS 1-TUBE (09/21/2024 9:14 AM DIRECTOR MARKETING COMMUNICATIONS) Only the most recent of2 resultswithin the time period is included. QuantiFERON TB Gold Plus NEGATIVE NEGATIVE [facility] [...] T-lymphocytes. For additional information, please refer to https://education.[employer]/faq/SWA954 (This link is being provided for informational/ educational purposes only.) Test Performed at: [facility] [address] [place] [address] CORNELIA DAHL MD 09/21/2024 9:14 AM DIRECTOR MARKETING COMMUNICATIONS 09/21/2024 9:14 AM DIRECTOR MARKETING COMMUNICATIONS Didi Blandon MD LAB - CHEMISTR Y ORDERABLES [facility] [place] [address] [place] [address] * PATHOLOGY TISSUE FOR DERMATOLOGY (05/16/2016 12:00 AM CDT) Result CASE: [id number] PATIENT: ARTI RODAS PATHOLOGIC DIAGNOSIS: Right shoulder: SEBORRHEIC KERATOSIS PRESENT AT MARGIN CLINICAL DATA: Changing lesion. Check margins. GROSS DESCRIPTION: Received is one formalin filled container labeled with the patients name and designated right shoulder. The specimen consists of a shave biopsy (3 pieces) measuring 8x5i1eh, margin inked green, 9x9z2mf, 3q8y7ib. Jar 0. MICROSCOPIC DESCRIPTION: Sections show an acanthotic lesion composed of relatively uniform keratinocytes. There is hyperkeratosis and pseudo horn cysts formation. Lesion is present at the margin of the specimen. Electronically signed out by Bindu Berger M.D., PhD. 05/18/2016 3:17:43PM [facility] DERMAT[facility]Y [facility] Comment: Performed at: Dermatopathology Laboratory [facility] - Department of Dermatology [address] [place] [address], 5th [place] [address] Phone number: [phone] FAX: [phone] 05/16/2016 05/17/2016 Eligio Chapman MD LAB - PATHOLOGY/CYTO LOGY ORDERABLES [facility] [address] [place] [address], [facility] [phone] * GROSS + MICRO EXAM (06/04/2003 3:38 PM CDT) Result CASE NUMBER [id number] Comment: ORDERING PHYSICIAN KWADWO AREVALO SPECIMEN TYPE Liver Biopsy Date 06/04/2003 Physician Trnag Arevalo Gross Description The specimen is received in a single formalin-filled container labeled with the patient's name and liver biopsy . The specimen consists of two cores of liver biopsy, each measuring approximately 1.5 cm. in length. The entire specimen is submitted in a single cassette. AE/bk Microscopic Exam Microscopic examination of the liver biopsy reveals multiple fragments of liver parenchyma showing fatty metamorphosis of macrovesicular nature. Portal areas are unremarkable. Hepatic parenchyma shows macrovesicular steatosis of moderate nature. No evidence of diffuse, focal liver cell necrosis, granulomas, metastatic or primary malignancy is seen. Prussian Blue stain reveals no siderosis. Occasional Kupfer cell iron deposition is noted. Trichrome stain reveals no cirrhosis, portal fibrosis. SR/bk Diagnosis I. Liver, needle biopsies A. Fatty metamorphosis, moderate. B. No evidence of malignancy. SR/bk Sports Development Officer bk Pathologist Lovely Price M.D. [place]. 06/05/2003 1002 <1> CPT code 45331, 40398 x2 (PB and Trichrome) MISCELLANEOUS SAMPLES / Unknown 06/04/2003 3:38 PM CDT 06/04/2003 3:38 PM CDT Historical Provider LAB - PATHOLOGY/C YTOLOGY ORDERABLES Care Teams Plastic And Reconstructive Surgeon Relationship Specialty Start Date End Date Eligio Chapman MD [address] [place] [address] [facility] - General 07/09/22
[2024-10-05 12:37] LABS: Basophils Percent Auto 0.6 % (0.2-1.2); Eosinophils Absolute Auto 0.1 K/mm3 (0-0.3); Eosinophils Percent Auto 1.2 % (0-4.4); Hematocrit 39.6 % (37.0-47.0); Hemoglobin 12.9 g/dL (12.0-15.0); Immature Granulocyte Absolute 0.02 K/mm3 (0.00-0.031); Immature Granulocyte Percent A 0.3 % (0-0.5); Lymphocytes Absolute Auto 3.08 K/mm3 (0.9-3.2); Lymphocytes Percent Auto 47.6 % (18.3-44.2); Mean Corpuscular HGB Conc 32.6 g/dl (32-36); Mean Corpuscular Hemoglobin 29.9 pg (26-34); Mean Corpuscular Volume 91.9 fl (80-100); Mean Platelet Volume 9.7 fl (7.4-10.4); Monocytes Absolute Auto 0.5 K/mm3 (0.1-0.6); Monocytes Percent Auto 8.3 % (2.6-8.5); Neutrophils Absolute Auto 2.7 K/mm3 (1.3-6.7); Platelet Count Result 206 k/mm3 (150-375); Red Blood Count 4.31 M/mm3 (4.2-5.4); Red Cell Distribution Width 12.1 % (11.5-14.5); White Blood Count 6.5 K/mm3 (4.5-10.0)
[2024-10-05 12:44] LABS: Add Urine Microscopic? YES; Appearance Urine Cloudy (Clear); Bacteria Urine 4+ /hpf; Bilirubin Urine Negative (Negative); Blood Urine Negative (Negative); Color Urine Yellow (Yellow); Glucose Urine UA Negative (Negative); Ketones Urine Negative (Negative); Leukocyte Esterase Ur Negative LEU/UL (Negative); Nitrate Urine Negative (Negative); Non Pathogenic Casts 0-2; Protein Urine Negative (Negative); RBC Urine 0-2 /hpf (0-2); Specific Grav Ur 1.022 (1.001-1.035); Squamous Epithelial Cell Urine None Seen /hpf (Few); Urobilinogen Urine 0.2 mg/dL (<2.0); WBC Urine 0-5 /hpf (0-3)
== END 2024-10-05 12:00 | disposition home or self-care (01) ==
LOC: ANHLAB 12:02
PROVIDERS: PCP Physician Assistant Medical; Visit Provider Orthopaedic Surgery
DX: R94.31 Abnormal electrocardiogram [ECG] [EKG] (principal); I44.7 Left bundle-branch block, unspecified; R01.1 Cardiac murmur, unspecified; I10 Essential (primary) hypertension; R06.09 Other forms of dyspnea; Z79.899 Other long term (current) drug therapy
CPT/HCPCS: 36415; 81001; 85025; 93005

== ENCOUNTER 2024-11-04 08:11 | Outpatient (CLI) | payer MEDICARE, OTHER, SELFPAY ==
--- NOTE | ~2024-11-04 | NM_ITS ---
EXAMINATION: NM wanda stress w perfusion DATE: 11/04/2024 11:24 INDICATION: Other forms of dyspnea. TECHNIQUE: Rest images were obtained following intravenous administration of 10.6 mCi Tc99m tetrofosm in (Myoview). The patient was infused intravenously with Lexiscan (regadenoson). Then, 31.2 mCi Tc99m tetrofosmin (Myoview) was administered intravenously, and stress images were obtained. Data was romulo nstructed into short axis and horizontal and vertical long axis SPECT images. Gated SPECT images were also obtained. COMPARISON: None. FINDINGS: There is no definite reversible or fixed perfusion abnormality to suggest ischemia or infar ction. There is no segmental wall motion abnormality. Left ventricular ejection fraction measures > 70%. IMPRESSION: 1. No definite ischemia or infarct. 2. Normal left ventricular ejection fraction measuring >70%. Reviewed, dictated and finalized at location B.
--- OUTSIDE RECORDS SUMMARY | 2024-11-04 08:21 | XMS_ITS | Encounter Summary ---
Author Organization [facility] Health Address [facility] [facility] [place] [address] Care Team Providers Care Dough Scaler And Mixer Name Role Phone Eligio Chapman MD Primary Care Provider [phone] Reason for Visit * Reason Onset Date Comments MEDICATION REFILL 01/05/2024 Encounter Details Date Type Department Care Team (Late Contact Info) Description 01/05/2024 Refill [facility] - Derm[facility]ology [facility] [place] [phone] Didi Blandon MD [address] [place] [address] [place] [phone] MEDICATION REFILL Social History Tobacco Use Types Packs/Day Years Used Date Smoking Tobacco: Never Assessed Sex and Gender Information Value Date Recorded Sex Assigned at Not on file Gender Identity Not on file Sexual Orientation Not on file documented as of this encounter Plan of Treatment Upcoming Encounters Date Type Department Care Team (Late Contact Info) Description 09/23/2025 1:20 PM ROPE RIDER Office Visit [facility] - Dermatology [address] [place] [phone] Didi Blandon MD [address] [place] [address] [place] [phone] documented as of this encounter Visit Diagnoses Diagnosis Psoriasis Other psoriasis documented in this encounter Care Teams Dough Scaler And Mixer Relationship Specialty Start Date End Date Eligio Chapman MD [address] [place] [address] PCP - General 07/09/22 documented as of this encounter
--- OUTSIDE RECORDS SUMMARY | 2024-11-04 08:21 | XMS_ITS | Referral Summary ---
Author Organization [facility] Address [address] [address] Care Team Providers Care Community Health Navigator Name Role Phone Eligio Chapman MD Primary Care Provider [phone] Source Comments [facility],non-owned Affiliates and Associated Physician Practices is amultiple site organization consisting of ambulatory clinics and hospital sitesin [place], [place], [place] and [place]. This disclosure is being madepursuant to the Care Everywhere program and may not contain all information available regarding this patient. Last updated 18.[facility] Encounters Date Type Department Care Team Description 10/21/2024 Refill [facility] - General Dermatology [address], [facility] [address] [place] [address] Didi Blandon MD MEDICATION REFILL 09/18/2024 Travel 09/18/2024 1:20 PM FREELANCE RECRUITER Office Visit [facility] - Dermatology [address] [place] [address], [place] [phone] Didi Blandon MD Psoriasis (Primary Dx); Encounter for long-term (current) use of high-risk medication 08/27/2024 Refill [facility] - General Dermatology [address], [facility] [address] [place] [address] Didi Blandon MD MEDICATION REFILL [...] 125 MCG (5000 UT) capsule 07/08/2023 Active pimecrolimus (Elidel) 1 % creamIndications :Psoriasis Apply to affected area on face BID as needed for rash. 30 day supply. Reasons: Psoriasis 60 g 2 09/18/2024 Active mometasone (Elocon) 0.1 % creamIndications :Psoriasis Apply to affected areas once daily as needed for rash. 30 days supply. 45 g 3 09/18/2024 Active adalimumab (Humira, 2 Pen,) 40 MG/0.4ML injectionIndicat ions:Psoriasis Inject 0.4 mL subcutaneously every 14 days 0.8 mL 11 10/23/2024 Active adalimumab (Humira, 2 Pen,) 40 MG/0.4ML injectionIndicat ions:Psoriasis Inject 0.4 mL subcutaneously every 14 days 0.8 mL 1 08/27/2024 Discontinue d(Reorder) Active Problems No known active problems Social History Tobacco Use Types Packs/Day Years Used Date Smoking Tobacco: Never Assessed Sex and Gender Information Value Date Recorded Sex Assigned at Not on file Gender Identity Not on file Sexual Orientation Not on file Plan of Treatment Upcoming Encounters Date Type Department Care Team (Late st Contact Info) Description 09/23/2025 1:20 PM FREELANCE RECRUITER Office Visit [facility] - Dermatology [address] [place] [address], [place] [address] Didi Blandon MD [address] [place] [address] [address] [place] [phone] Procedures Procedure Name Priority Date/Time Associated Diagnosis Comments QUANTIFERON-TB GOLD PLUS 1-TUBE 09/21/2024 9:14 AM FREELANCE RECRUITER from Last 3 Months Results * QUANTIFERON-TB GOLD PLUS 1-TUBE (09/21/2024 9:14 AM FREELANCE RECRUITER) [facility] QuantiFERON TB Gold Plus NEGATIVE NEGATIVE [facility] [...] T-lymphocytes. For additional information, please refer to https://education.AquaHydrate.Haofangtong/faq/IJK428 (This link is being provided for informational/ educational purposes only.) Test Performed at: [facility] [address] [place] [address] CORNELIA DAHL MD 09/21/2024 9:14 AM FREELANCE RECRUITER 09/21/2024 9:14 AM FREELANCE RECRUITER Didi Blandon MD LAB - CHEMISTR Y ORDERABLES [facility] [address] [place] [address] from Last 3 Months Care Teams Community Health Navigator Relationship Specialty Start Date End Date Eligio Chapman MD [address] [place] [address] PCP - General 07/09/22
--- OUTSIDE RECORDS SUMMARY | 2024-11-04 08:22 | XMS_ITS | Clinical Summary ---
Author Organization [facility] [email or web address] Address [address] [place] [address] Care Team Providers Care Cash Posting Clerk Name Role Phone Eligio Chapman MD Primary Care Provider [phone] Source Comments [facility] [email or web address],non-owned Affiliates and Associated Physician Practices is amultiple site organization consisting of ambulatory clinics and hospital sitesin [place], [place], [place] and [place]. This disclosure is being madepursuant to the Care Everywhere program and may not contain all information available regarding this patient. Last updated 18.[facility] Allergies No known active allergies Medications * [...] Physician Group - General Dermatology [address], [address] [place] [address] Didi Blandon MD MEDICATION REFILL 09/18/2024 1:20 PM PATTERN TECHNICIAN Office Visit [facility] - Dermatology [address] [place] [address] [place] [address] Didi Blandon MD Psoriasis (Primary Dx); Encounter for long-term (current) use of high-risk medication 09/18/2024 Travel 08/27/2024 Refill [facility] - General Dermatology [address], [address] [place] [phone] Didi Blandon MD MEDICATION REFILL from Last 3 Months Social History Tobacco Use Types Packs/Day Years Used Date Smoking Tobacco: Never Assessed Sex and Gender Information Value Date Recorded Sex Assigned at Not on file Gender Identity Not on file Sexual Orientation Not on file Plan of Treatment Upcoming Encounters Date Type Department Care Team (Late st Contact Info) Description 09/23/2025 1:20 PM PATTERN TECHNICIAN Office Visit [facility] - Dermatology [facility] [facility] [place], [place] [address] Didi Blandon MD [facility] [facility] [address]L [place] [phone] Health Maintenance Due Date Last Done Comments [...] VACCINE (1 of 2) 2006 COVID-19 VACCINE ( - 2023-2 5 season) 2024 INFLUENZA VACCINE [...] to complete this topic MENINGOCOCCAL (Group B) VACC INE SHARED DECISION-MAKING Aged Out No longer eligibl e based on patient's age to complete this topic MENINGOCOCCAL GROUPS A/C/Y/W VACCINE Aged Out No longer eligible b ased on patient's age to complete this topic Procedures Procedure Name Priority Date/Time Associated Diagnosis Comments QUANTIFERON-TB GOLD PLUS 1-TUBE 09/21/2024 9:14 AM PATTERN TECHNICIAN from Last 3 Months Results * QUANTIFERON-TB GOLD PLUS 1-TUBE (09/21/2024 9:14 AM PATTERN TECHNICIAN) [facility] QuantiFERON TB Gold Plus NEGATIVE NEGATIVE [facility] [...] T-lymphocytes. For additional information, please refer to https://education.ScoreGrid/faq/ULH515 (This link is being provided for informational/ educational purposes only.) Test Performed at: [employer] [address] CORNELIA DAHL MD 09/21/2024 9:14 AM PATTERN TECHNICIAN 09/21/2024 9:14 AM PATTERN TECHNICIAN Didi Blandon MD LAB - CHEMISTR Y ORDERABLES [facility] [address] [place] [address] from Last 3 Months Care Teams Cash Posting Clerk Relationship Specialty Start Date End Date Eligio Chapman MD [address] [place] [address] PCP - General 07/09/22
--- OUTSIDE RECORDS SUMMARY | 2024-11-04 08:22 | XMS_ITS | Patient Health Summary ---
Author Organization [facility] Address [address] [place] [address] Care Team Providers Care Edger Machine Helper Name Role Phone Eligio Chapman MD Primary Care Provider [phone] Note from [facility],non-owned Affiliates and Associated Physician Practices is amultiple site organization consisting of ambulatory clinics and hospital sitesin [place], [place], [place] and [place]. This disclosure is being madepursuant to the Care Everywhere program and may not contain all information available regarding this patient. Last updated 18.[facility] Allergies No known active allergies Medications * [...] 125 MCG (5000 UT) capsule(Started 07/08/2023) * pimecrolimus (Elidel) 1 % cream(Started 09/18/2024) Apply to affected area on face BID as needed for rash. 30 day supply. Reasons: Psoriasis 2 refills by 09/18/2025 * mometasone (Elocon) 0.1 % cream(Started 09/18/2024) Apply to affected areas once daily as needed for rash. 30 days supply. 3 refills by 09/18/2025 * adalimumab (Humira, 2 Pen,) 40 MG/0.4ML injection(Started 10/23/2024) Inject 0.4 mL subcutaneously every 14 days 11 refills by 10/23/2025 Ended Medications* adalimumab (Humira, 2 Pen,) 40 MG/0.4ML injection(Started 08/27/2024)(Discontinued) Inject 0.4 mL subcutaneously every 14 days 1 refill by 08/27/2025 Active Problems No known active problems Social [...] QUANTIFERON-TB GOLD PLUS 1-TUBE (09/21/2024 9:14 AM DEPUTY SHERIFF CUSTODY) Only the most recent of2 resultswithin the [...] T-lymphocytes. For additional information, please refer to https://education.Sprout/faq/MRR909 (This link is being provided for informational/ educational purposes only.) Test Performed at: [facility] [address] [place] [address] CORNELIA DAHL MD 09/21/2024 9:14 AM DEPUTY SHERIFF CUSTODY 09/21/2024 9:14 AM DEPUTY SHERIFF CUSTODY Didi Blandon MD LAB - CHEMISTR Y ORDERABLES [facility] [address] [place] [address] * PATHOLOGY TISSUE FOR DERMATOLOGY (05/16/2016 12:00 AM CDT) Result CASE: [id number] PATIENT: ARTI RODAS PATHOLOGIC DIAGNOSIS: Right shoulder: SEBORRHEIC KERATOSIS PRESENT AT MARGIN CLINICAL DATA: Changing lesion. Check margins. GROSS DESCRIPTION: Received is one formalin filled container labeled with the patients name and designated right shoulder. The specimen consists of a shave biopsy (3 pieces) measuring [id number], margin inked green, [id number], [id number]. Jar 0. MICROSCOPIC DESCRIPTION: Sections show an acanthotic lesion composed of relatively uniform keratinocytes. There is hyperkeratosis and pseudo horn cysts formation. Lesion is present at the margin of the specimen. Electronically signed out by Bindu Berger M.D., PhD. 05/18/2016 3:17:43PM [facility] D[facility] Comment: Performed at: Dermatopathology Laboratory [facility] - Department of Dermatology [address] [place] [address], 5th [place] [address] Phone number: [phone] FAX: [phone] 05/16/2016 05/17/2016 Eligio Chapman MD LAB - PATHOLOGY/CYTO LOGY ORDERABLES [facility] [address] [facility]. 5th [place] [address], [facility] [phone] * GROSS + MICRO EXAM (06/04/2003 3:38 PM CDT) Result CASE NUMBER [id number] Comment: ORDERING PHYSICIAN KWADWO AREVALO SPECIMEN TYPE Liver Biopsy Date 06/04/2003 Physician Trang Arevalo Gross Description The specimen is received [...] moderate. B. No evidence of malignancy. SR/bk Er Manager bk Pathologist Lovely Price M.D. Snomed. 06/05/2003 1002 <1> CPT code 16598, 19855 x2 (PB and Trichrome) MISCELLANEOUS SAMPLES / Unknown 06/04/2003 3:38 PM CDT 06/04/2003 3:38 PM CDT Historical Provider LAB - PATHOLOGY/C YTOLOGY ORDERABLES Care Teams Edger Machine Helper Relationship Specialty Start Date End Date Eligio Chapman MD [address] [place] [address] [facility] - General 07/09/22
--- NOTE | 2024-11-04 09:26 | EST_ITS ---
Patient Info Name: Arti Rodas Age: 69 years : 1955 Gender: Female Ht: 60 in Wt: 158 lbs BSA: 1.77 m2 HR: 65 bpm BP: 133 / 67 mmHg Exam Date: 11/04/2024 9:38 AM Exam Location: Echo Lab Patient Status: Outpatient Admit Date: 11/04/2024 Staff Ordering Physician: John Hernandez DO Attending Provider: John Hernandez DO Exercise Technologist: Abner MATT [facility] Exercise Physician: John Hernandez DO Exam Type: CA stress wanda w NM Study Info Indications R06.09 - Other forms of dyspnea A regadenoson stress test was performed. Summary 1. 1. Inconclusive lexiscan stress test for ischemic ST changes by ECG criteria due to baseline LBBB. 2. 2. Stable hemodynamics throughout the test. 3. 3. Nuclear scan to follow and will be reported separately. Please correlate with it. 4. 4. Patient informed of the above results. Protocol: Lexiscan Stress ECG Details Stage: REST Duration (min): 0 min : 28 sec HR (bpm): 61 SBP (mmHg): --- DBP (mmHg): --- Stage: REST Duration (min): 6 min : 29 sec HR (bpm): 78 SBP (mmHg): 133 DBP (mmHg): 67 Stage: STAGE 1 Duration (min): 1 min : 0 sec HR (bpm): 101 SBP (mmHg): 148 DBP (mmHg): 59 Stage: RECOVERY Duration (min): 0 min : 58 sec HR (bpm): 100 SBP (mmHg): 148 DBP (mmHg): 59 Rest HR: 78 bpm Peak HR: 102 bpm Rest Sys BP: 133 mmHg Peak Sys BP: 148 mmHg Max Pred HR: 152 bpm % Max Pred HR: 67 % Target HR: 129 bpm Max RPP: 15,096 bpm*mmHg Termination Reason: Completed protocol Cardiac Symptoms: Shortness of breath Total Time: 1 min : 0 sec Rest Bennett BP: 67 mmHg Peak Bennett BP: 59 mmHg Total Dose: 0.4 mg Resting ECG Sinus rhythm, LBBB. Stress ECG No ST changes. Arrhythmias None. Report Signatures Amended by John Hernandez DO on 11/04/2024 10:34
== END 2024-11-04 08:12 | disposition home or self-care (01) ==
PROVIDERS: PCP Family Medicine; Visit Provider Internal Medicine Cardiovascular Disease
DX: Z01.818 Encounter for other preprocedural examination (principal); R06.09 Other forms of dyspnea
CPT/HCPCS: 78452; 93017; A9502; J2785

== ENCOUNTER 2024-12-02 11:34 | Outpatient (CLI) | payer MEDICARE, OTHER, SELFPAY ==
--- OUTSIDE RECORDS SUMMARY | 2024-12-02 13:15 | XMS_ITS | Clinical Summary ---
Author Organization [facility] [employer] Address [address] [place] [address] Care Team Providers Care Customer Sales Distributor Name Role Phone Eligio Chapman MD Primary Care Provider [phone] Source Comments [facility] [employer],non-owned Affiliates and Associated Physician Practices is amultiple site organization consisting of ambulatory clinics and hospital sitesin [place], [place], [place] and [place]. This disclosure is being madepursuant to the Care Everywhere program and may not contain all information available regarding this patient. Last updated 18.[employer] Allergies No known active allergies Medications * Be aware that medications may not be up to date on this document. Alwaysverify current medications with the patient. Medication Sig Dispensed Refills Start Date End Date Status losartan-hydroCHL OROthiazide (Hyzaar) 100-12.5 MG tablet Take 1 (one) tablet by mouth once daily 30 tablet 11 09/05/2022 Active rosuvastatin (Crestor) 20 MG tablet Do not take with milk, antacids, or iron.Take or use exactly as directed.Do not take if . 03/15/2023 Active losartan-hydroCHL OROthiazide (Hyzaar) 100-12.5 MG tablet Be careful if taking OTCs.Avoid exposure to sun.Take or use exactly as directed.Do not take if . 11/29/2022 Active alendronate (Fosamax) 70 MG tablet Take on empty stomach.Take only with water.Take with water first thing in AM. Stay up 30 min. 07/08/2023 Active vitamin D (Cholecaciferol) 125 MCG (5000 UT) capsule 07/08/2023 Active pimecrolimus (Elidel) 1 % creamIndications: Psoriasis Apply to affected area on face BID as needed for rash. 30 day supply. Reasons: Psoriasis 60 g 2 09/18/2024 Active mometasone (Elocon) 0.1 % creamIndications: Psoriasis Apply to affected areas once daily as needed for rash. 30 days supply. 45 g 3 09/18/2024 Active adalimumab (Humira, 2 Pen,) 40 MG/0.4ML injectionIndicati ons:Psoriasis Inject 0.4 mL subcutaneously every 14 days 0.8 mL 11 10/23/2024 Active Active Problems No known active problems Encounters Date Type Department Care Team Description 10/21/2024 Refill [facility] - General Dermatology [address] [facility] [address] [place] [address] Didi Blandon MD MEDICATION REFILL 09/18/2024 1:20 PM FACILITIES OFFICER [facility] [address] [place] [phone] Didi Blandon MD Psoriasis (Primary Dx); Encounter for long-term (current) use of high-risk medication 09/18/2024 Travel from Last 3 Months Social History Tobacco Use Types Packs/Day Years Used Date Smoking Tobacco: Never Assessed Sex and Gender Information Value Date Recorded Sex Assigned at Not on file Gender Identity Not on file Sexual Orientation Not on file Plan of Treatment Upcoming Encounters Date Type Department Care Team (Late st Contact Info) Description 09/23/2025 1:20 PM FACILITIES OFFICER Office Visit [facility] - Dermatology [address] [place] [phone] Didi Blandon MD [address] [place] [address] 3 [place] [phone] Health Maintenance Due Date Last Done Comments [...] VACCINE ( - 2023-2 5 season) 2024 DEPRESSION SCREENING 08/26/2024 INFLUENZA VACCINE (Season Ended) 2025 08/10/20 Respiratory Syncytial Virus (RSV) Vaccine Pt: or [...] QUANTIFERON-TB GOLD PLUS 1-TUBE 09/21/2024 9:14 AM FACILITIES OFFICER from Last 3 Months Results * QUANTIFERON-TB GOLD PLUS 1-TUBE (09/21/2024 9:14 AM FACILITIES OFFICER) QuantiFERON TB Gold Plus NEGATIVE NEGATIVE [facility] [...] T-lymphocytes. For additional information, please refer to https://education.Jocoos.Vocollect/faq/MII629 (This link is being provided for informational/ educational purposes only.) Test Performed at: [facility] [address] [place] [address] CORNELIA DAHL MD 09/21/2024 9:14 AM FACILITIES OFFICER 09/21/2024 9:14 AM FACILITIES OFFICER Didi Blandon MD LAB - CHEMISTR Y ORDERABLES [facility] [address] [place] [address] from Last 3 Months Care Teams Customer Sales Distributor Relationship Specialty Start Date End Date Eligio Chapman MD [address] [place] [phone] PCP - General 07/09/22
--- OUTSIDE RECORDS SUMMARY | 2024-12-02 13:15 | XMS_ITS | Encounter Summary ---
Author Organization [facility] Address [facility] [facility] [place] [address] Care Team Providers Care Ribbon Hand Name Role Phone Eligio Chapman MD Primary Care Provider [phone] Reason for Visit * Reason Onset Date Comments MEDICATION REFILL 01/05/2024 Encounter Details Date Type Department Care Team (Late Contact Info) Description 01/05/2024 Refill [facility] - Dermatology [facility] [place] [phone] Didi Blandon MD [address] [place] [address] [place] [phone] MEDICATION REFILL Social History Tobacco Use Types Packs/Day Years Used Date Smoking Tobacco: Never Assessed Sex and Gender Information Value Date Recorded Sex Assigned at Not on file Gender Identity Not on file Sexual Orientation Not on file documented as of this encounter Plan of Treatment Upcoming Encounters Date Type Department Care Team (Late Contact Info) Description 09/23/2025 1:20 PM HEEL ATTACHER WOOD Office Visit [facility] - Dermatology [address] [place] [phone] Didi Blandon MD [address] [place] [address] [place] [phone] documented as of this encounter Visit Diagnoses Diagnosis Psoriasis Other psoriasis documented in this encounter Care Teams Ribbon Hand Relationship Specialty Start Date End Date Eligio Chapman MD [address] [place] [address] PCP - General 07/09/22 documented as of this encounter
[2024-12-02 14:30] LABS: Basophils Absolute Auto 0.1 K/mm3 (0.0-0.1); Eosinophils Absolute Auto 0.2 K/mm3 (0-0.3); Eosinophils Percent Auto 2.4 % (0-4.4); Hematocrit 40.3 % (37.0-47.0); Immature Granulocyte Absolute 0.02 K/mm3 (0.00-0.031); Immature Granulocyte Percent A 0.3 % (0-0.5); Lymphocytes Percent Auto 34.4 % (18.3-44.2); Mean Corpuscular HGB Conc 32.3 g/dl (32-36); Mean Corpuscular Volume 93.1 fl (80-100); Mean Platelet Volume 9.6 fl (7.4-10.4); Monocytes Absolute Auto 0.7 K/mm3 (0.1-0.6); Monocytes Percent Auto 10.2 % (2.6-8.5); Neutrophils Absolute Auto 3.5 K/mm3 (1.3-6.7); Neutrophils Percent Auto 51.7 % (45.5-73.1); Platelet Count Result 200 k/mm3 (150-375); Red Blood Count 4.33 M/mm3 (4.2-5.4); Red Cell Distribution Width 12.1 % (11.5-14.5); White Blood Count 6.7 K/mm3 (4.5-10.0)
[2024-12-02 14:42] LABS: Albumin Level 4.4 g/dL (3.5-5.1); Anion Gap 9 mmol/L (4-12); Blood Urea Nitrogen 24 mg/dL (7-17); Calcium 9.2 mg/dL (8.4-10.2); Carbon Dioxide 29 mmol/L (22-30); Chloride 102 mmol/L (98-107); Estimated Glomerular Filt Rate 52; Glucose 113 mg/dL (65-110); INR 0.9; Potassium 3.6 mmol/L (3.4-5.0); Prothrombin Time 12.3 Seconds (11.1-14.7); Sodium 140 mmol/L (137-145)
[2024-12-02 14:43] LABS: Partial Thromboplastin Time 25.7 Seconds (22.3-36.8)
[2024-12-02 14:58] LABS: Add Urine Microscopic? YES; Appearance Urine Turbid (Clear); Bacteria Urine None Seen /hpf; Bilirubin Urine Negative (Negative); Blood Urine Negative (Negative); Color Urine Yellow (Yellow); Glucose Urine UA Negative (Negative); Ketones Urine Negative (Negative); Leukocyte Esterase Ur Negative LEU/UL (Negative); Nitrate Urine Negative (Negative); Non Pathogenic Casts 0-2; Protein Urine Negative (Negative); RBC Urine 0-2 /hpf (0-2); Specific Grav Ur 1.017 (1.001-1.035); Squamous Epithelial Cell Urine None Seen /hpf (Few); Urobilinogen Urine 0.2 mg/dL (<2.0); WBC Urine 0-5 /hpf (0-3)
[2024-12-02 15:55] LABS: MRSA (PCR) NOT DETECTED (NOT DETECTE)
[2024-12-02 19:36] LABS: Urine Cotinine NEGATIVE
[2024-12-02 20:29] LABS: Hemoglobin A1C 6.1 % (<5.7)
== END 2024-12-02 11:35 | disposition home or self-care (01) ==
PROVIDERS: PCP Family Medicine; Visit Provider Orthopaedic Surgery
DX: Z01.812 Encounter for preprocedural laboratory examination (principal); M17.12 Unilateral primary osteoarthritis, left knee
CPT/HCPCS: 80048; 80307; 81001; 82040; 83036; 85025; 85610; 85730; 86850; 86900; 86901; 87641

== ENCOUNTER 2024-12-17 16:03 | Observation (INO) | payer MEDICARE, OTHER, SELFPAY ==
[2024-12-02 13:20] VITALS: BP 156/69; PULSE 85; RESP 16; TEMP 36.6; O2SAT 95; BMI 31.3
--- NOTE | 2024-12-02 13:41 | PC.NURSE ---
Report to the Outpatient Waiting Room, entrance under the green pavilion located off [facility], at time _0600am on date ___12/16/24____. Planned Procedure Time: __0730am .? Time changes happen often and if your time is changed the preop area will call you the afternoon before. - You and your visitor will be asked to self-screen and do not enter if you have any COVID symptoms. Please call surgeon if you need to reschedule. - A mask is optional within the hospital at this time. Patients may have clear liquids (water, carbonated beverages, clear teas, apple juice) until 3 hours prior to surgery with a maximum of 20 ounces. - No food from midnight until time of surgery and no smoking, or chewing tobacco (or any form of nicotine). No chewing gum, candy or mints. (0430am) Take only the following medications with a SIP of water on the morning of surgery: ___None DO NOT STOP ANY OF YOUR OTHER PRESCRIPTION MEDICATIONS PRIOR TO SURGERY EXCEPT THE FOLLOWING Hold all vitamins and supplements for 3 days per anesthesiologist.Date to take last dose___12/12/24 Medications to discontinue per physician None Date to take last dose None Please no make-up, nail wolof, hairspray, perfume, deodorant, or body powder the day of surgery.? No jewelry (including any body piercings) or valuables the day of surgery, leave them at home.? Please take a shower or bath the night before, or the morning of, surgery with an antibacterial soap.?HIBICLEANSE PREOP PER DR RODRIGEZ Wear comfortable, loose fitting clothing. Bring overnight bag, phone pricing director if phone pricing director, and anythings else. ? - Jewelry must be removed prior to entering the operating room.? Rings and piercings that are not removed may be cut off. - The hospital will not accept responsibility for valuables.? - Please leave all valuables, including medications, at home the day of surgery. If you are going home after surgery, a licensed delivery route driver must drive you home.? - NO public transportation without another adult if you receive anesthesia. - We recommend that an adult stay with you for 24 hours following discharge. - We also recommend that you do not drive, make important decision, drink alcoholic beverages, or take any drugs that were not prescribed by your health care provider for at least 24 hours after your discharge time. Follow any additional instructions given to you from your surgeon. Telephone instructions given to __Patient & and asked if any additional questions and then verbalized understanding. Patient advised to call surgeon office or pre surgery nurse liaison [phone] if any additional questions.
[2024-12-16] VITALS (16 sets, daily range): BP systolic 129–161; BP diastolic 61–95; PULSE 75–95; RESP 10–18; TEMP 36.2–36.9; O2SAT 93–100; BMI 31.4
--- OUTSIDE RECORDS SUMMARY | 2024-12-16 00:15 | XMS_ITS | Encounter Summary ---
Author Organization [facility] Health Address [facility] [place] [address] Care Team Providers Care Overcoil Stepper Name Role Phone Eligio Chapman MD Primary Care Provider [phone] Reason for Visit * Reason Onset Date Comments MEDICATION REFILL 01/05/2024 Encounter Details Date Type Department Care Team (Late Contact Info) Description 01/05/2024 Refill [facility] - Dermatology [address] [place] [phone] Didi Blandon MD [address] [place] [address] [place] [phone] MEDICATION REFILL Social History Tobacco Use Types Packs/Day Years Used Date Smoking Tobacco: Never Assessed Comments Unknown Sex and Gender Information Value Date Recorded Sex Assigned at Not on file Legal Sex Female 6:26 AM LOCOMOTIVE DRIVER Gender Identity Not on file Sexual Orientation Not on file documented as of this encounter Plan of Treatment Upcoming Encounters Date Type Department Care Team (Late Contact Info) Description 09/23/2025 1:20 PM LOCOMOTIVE DRIVER Office Visit [facility] - Dermatology [address] [place] [phone] Didi Blandon MD [address] [place] [address] [place] [phone] documented as of this encounter Visit Diagnoses Diagnosis Psoriasis Other psoriasis documented in this encounter Care Teams Overcoil Stepper Relationship Specialty Start Date End Date Eligio Chapman MD [address] [place] [address] PCP - General 07/09/22 documented as of this encounter
--- OUTSIDE RECORDS SUMMARY | 2024-12-16 00:15 | XMS_ITS | Clinical Summary ---
Author Organization [facility] Address [address] [facility] [place] [address] Care Team Providers Care Project Designer Name Role Phone Eligio Chapman MD Primary Care Provider [phone] [facility],non-owned Affiliates and Associated Physician Practices is amultiple site organization consisting of ambulatory clinics and hospital sitesin [place], [place], [place] and [place]. This disclosure is being madepursuant to the Care Everywhere program and may not contain all information available regarding this patient. Last updated 18.[employer] [facility] Allergies No known active allergies Medications * Be aware that medications may not be up to date on this document. Alwaysverify current medications with the patient. losartan-hydro CHLOROthiazide (Hyzaar) 100-12.5 MG tablet Take 1 (one) tablet by mouth once daily 30 tablet 11 3 Active rosuvastatin (Crestor) 20 MG tablet Do not take with milk, antacids, or iron.Take or use exactly as directed.Do not take if . 3 Active losartan-hydro CHLOROthiazide (Hyzaar) 100-12.5 MG tablet Be careful if taking OTCs.Avoid exposure to sun.Take or use exactly as directed.Do not take if . 3 Active alendronate (Fosamax) 70 MG tablet Take on empty stomach.Take only with water.Take with water first thing in AM. Stay up 30 min. 3 Active vitamin D (Cholecacifero l) 125 MCG (5000 UT) capsule 3 Active pimecrolimus (Elidel) 1 % creamIndicatio ns:Psoriasis Apply to affected area on face BID as needed for rash. 30 day supply. Reasons: Psoriasis 60 g 2 5 Active mometasone (Elocon) 0.1 % creamIndicatio ns:Psoriasis Apply to affected areas once daily as needed for rash. 30 days supply. 45 g 3 5 Active adalimumab (Humira, 2 Pen,) 40 MG/0.4ML injectionIndic ations:Psorias is Inject 0.4 mL subcutaneously every 14 days 0.8 mL 11 5 Active Active Problems No known active problems Encounters Date Type Department Care Team Description 10/21/2024 Refill [facility] - General Dermatology [address] , [facility] [address] [place] [phone] Didi Blandon MD MEDICATION REFILL 09/18/2024 1:20 PM LINK KNITTING MACHINE OPERATOR Office Visit [facility] - Dermatology [address] [place] [phone] Didi Blandon MD Psoriasis (Primary Dx); Encounter for long-term (current) use of high-risk medication 09/18/2024 Travel from Last 3 Months Social History Tobacco Use Types Packs/Day Years Used Date Smoking Tobacco: Never Assessed Comments Unknown Sex and Gender Information Value Date Recorded Sex Assigned at Not on file Legal Sex Female 6:26 AM LINK KNITTING MACHINE OPERATOR Gender Identity Not on file Sexual Orientation Not on file Plan of Treatment Upcoming Encounters Date Type Department Care Team (Late st Contact Info) Description 09/23/2025 1:20 PM LINK KNITTING MACHINE OPERATOR Office Visit [facility] - Dermatology [address] [place] [phone] Didi Blandon MD [address] [place] [address] [address] [place] [phone] Health Maintenance Due Date Last Done Comments [...] VACCINE (1 - 2023-2 5 season) 2024 DEPRESSION SCREENING 08/26/2024 INFLUENZA VACCINE (Season Ended) 2025 08/10/20 06 Respiratory Syncytial Virus (RSV) Vaccine Pt: or [...] QUANTIFERON-TB GOLD PLUS 1-TUBE 09/21/2024 9:14 AM LINK KNITTING MACHINE OPERATOR from Last 3 Months Results * QUANTIFERON-TB GOLD PLUS 1-TUBE (09/21/2024 9:14 AM LINK KNITTING MACHINE OPERATOR) QuantiFERON TB Gold Plus NEGATIVE NEGATIVE [facility] [...] T-lymphocytes. For additional information, please refer to https://education.Alektrona/faq/YKK964 (This link is being provided for informational/ educational purposes only.) Test Performed at: [employer] [facility] [address] [place] [address] CORNELIA DAHL MD 09/21/2024 9:14 AM LINK KNITTING MACHINE OPERATOR 09/21/2024 9:14 AM LINK KNITTING MACHINE OPERATOR Didi Blandon MD LAB - CHEMISTRY ORDERA BLES Final Result Performing Organization Address City/State/[facility] Co de Phone Number [facility] [phone] [place] [address] from Last 3 Months Insurance MEDICARE [facility] Care Teams Project Designer Relationship Specialty Start Date End Date Eligio Chapman MD [address] [place] [phone] PCP - General 07/09/22
--- NOTE | 2024-12-16 06:32 | WPDANESEPPF ---
Anes - Initial Pre Proc Eval Procedure: Operation Date: 12/16/24 07:30 Proposed Procedures p Left Total Knee Arthroplasty - Hussain Rutherford MD Date/Time: 12/16/24 06:32 Surgeon: Hussain Rutherford MD Pre Op Diagnosis: Lt Knee DJD Patient Data Age: 69 Gender: F Height: 1.52 m Weight: 72.7 kg Last Vital Signs Temp 36.6 C 12/02/24 13:20 Pulse 85 12/02/24 13:20 Resp 16 12/02/24 13:20 BP 156/69 H 12/02/24 13:20 Pulse Ox 95 12/02/24 13:20 O2 Del Method Room Air 12/02/24 13:20 Allergies Allergy/AdvReac Type Severity Reaction Status Date / Time No Known Allergies Allergy Unknown Verified 12/16/24 06:17 Home Medications ?Medication ?Instructions ?Recorded ?Confirmed ?Type adalimumab 40 mg/0.8 mL 40 mg subcut [id number] 09/21/19 12/02/24 History subcutaneous syringe kit (Humira) omega 8-ozs-cve-fish oil 1,000 mg 2 cap PO BID 07/24/22 12/16/24 History (120 mg-180 mg) capsule (Fish Oil) rosuvastatin 20 mg tablet (Crestor) 20 mg PO DAILY #90 tabs 06/22/24 12/16/24 Rx alendronate 70 mg tablet (Fosamax) 70 mg PO WEEKLY #12 tabs 08/24/24 12/16/24 Rx losartan 100 1 tablet PO QAM hypertension #90 08/24/24 12/16/24 Rx mg-hydrochlorothiazide 12.5 mg tabs tablet (Hyzaar) cholecalciferol (vitamin D3) 125 125 mcg PO DAILY #90 tabs 09/28/24 12/16/24 Rx mcg (5,000 unit) tablet chlorhexidine gluconate 4 % 1 applic topical ONCE #237 mL 12/02/24 12/16/24 Rx topical liquid (Hibiclens) Patient hx anesthesia problems: post op nausea/vomiting Family hx anesthesia problems: none Results Review: All pre-operative results and documents have been reviewed as part of the pre-operative evaluation. [facility] Past Medical History Medical History (Updated 12/04/24 @ 10:18 by AMY Aragon) DJD (degenerative joint disease) of knee DONNA (obstructive sleep apnea) Medial meniscus tear Psoriasis Hypersomnia ROYAL (dyspnea on exertion) LBBB (left bundle branch block) Preop cardiovascular exam Murmur Abnormal EKG Preoperative clearance Psoriasis Kidney stones Abnormality of heart beat Hypertension Wears glasses History of adverse reaction to anesthesia Acute meniscal tear of knee Left knee pain BMI 30.0-30.9,adult Essential (primary) hypertension Follicle cyst Ocular hypertension, unspecified eye Surgical History Surgical History H/O knee surgery History of endometrial ablation History of cholecystectomy History of extraction of renal calculus Family History Family History Father Alzheimers disease Mother Diabetes mellitus Heart disease Sibling Diabetes mellitus Gout COVID-19 Sibling Hypertension Other Arthritis Social History Social History Smoking status: Never smoker Second hand tobacco smoke exposure: No Alcohol intake: never Substance use: never Substance use type: does not use Lack of Transportation: No Lack of Food: Never True Current Housing: I Have Housing Concerned About Future Housing: No Difficulty Paying Gas/Electric Bills: No Difficulty Paying for Meds: No Currently Unemployed: No Education: High School Diploma/GED Difficulty w/ Childcare or Family Care: No Living arrangements: with family Additional living arrangements comments: [facility] Occupation/Education: occupation Additional occupation/education comments: [employer]. Gender identity (if verbalized by the patient): Female Spiritual care concerns: No Anes - Eval Final PreProcedure Day of Procedure 12/16/24 06:32 Patient weight: obese Heart: regular rate and rhythm Lungs: clear to auscultation Airway: Mallampati scale class II Neurological: alert and oriented Last oral intake: >/= 8 hours ASA classification: III Emergent: no Anesthetic plan: proceed Anesthesia type and monitoring: general LMA and standard monitoring Results Review: All pre-operative results and documents have been reviewed as part of the pre-operative evaluation. Informed Consent: The patient's anesthetic plan and its attendant risks and benefits were discussed with the patient/family/POA. Questions were solicited and answers provided to the satisfaction of the patient/family/POA.
[2024-12-16] MEDS: ACETAMINOPHEN 500 MG TABLET 1000 MG PO (06:45)
[2024-12-16] MEDS: LACTATED RINGERS 1,000 ML 30 ML IV CONT ×2 (06:47→11:15)
[2024-12-16] MEDS: TRANEXAMIC ACID 1,000MG/ISO100 1,000 MG/100 ML BAG 200 MG IVPB (07:01)
--- NOTE | 2024-12-16 07:22 | WPDHPUPDATE1 ---
History and Physical Update Update Date/Time: 12/16/24 07:22 History and Physical has been reviewed, including an updated exam of the patient. There are NO changes in the patient's condition. Risks, benefits, and alternatives have been discussed and questions answered. Patient agrees to proceed with procedure.
--- NOTE | 2024-12-16 07:32 | WPDANESPNB ---
Anes - Peripheral Nerve Block Date/Time: 12/16/24 07:32 I have discussed with the patient/family/POA the placement of a peripheral nerve block for post-operative pain management, including associated risks, benefits, complications, and side effects. Alternative methods of post-operative analgesia were detailed. Questions were solicited and answers provided to the satisfaction of the patient/family/POA. Time-Out: A pre-procedural Time-Out was completed immediately before starting the procedure and confirmed: Patient Identification, Site, Procedure, Patient Position and the Availability of Requisite Equipment. Clinical Indications: Acute post-operative pain management requested by the operative surgeon. Nerve Block Insertion Note Anes-nerve block: adductor canal left Patient position: supine Skin prep: chlorhexidine Needle: 22 gauge, stimulating, insulated echogenic needle. Needle length: 80 mm Technique: ultrasound Injectate: bupivacaine 0.5% with epi 5 mcg/ml (30cc - no epi) Observations: tolerated well Complications: none Procedure start time:: 724 Procedure end time:: 729
[2024-12-16] MEDS: ceFAZolin 2 GM/D5W 50 ML 2 GM/50 ML BAG IVPB ×2 (07:34→15:43)
[2024-12-16] MEDS: SODIUM CHLORIDE 0.9% IV 37.7 ML, MORPHINE SULFATE INJ (*CRX) 2 MG, ROPivacaine HCL 1% 2... INFILTRATE (07:34)
[2024-12-16] MEDS: TRANEXAMIC ACID 1,000 MG/10 ML AMPUL 1000 MG IV PUSH (09:16)
--- NOTE | 2024-12-16 09:53 | W.PM.PROC2 ---
Procedure Note - Detailed Date of Procedure 12/16/24 Pre-op Diagnosis Lt Knee DJD Post-op Diagnosis Same Procedure Performed L TKA Surgeon Hussain Rutherford MD Anesthesia General Description of Procedure THE LEFT KNEE WAS PREPPED AND DRAPED IN THE STERILE FASHION. THERE WAS A 10 DEGREE EXTENSION LAG. A MIDLINE SKIN INCISION WAS MADE. A MEDIAL PARAPATELLAR ARTHROTOMY WAS MADE. THE PATELLA WAS EVERTED. THERE WAS TRICOMPARTMENT DJD. THERE WAS MINIMAL PATELLA DJD. AN INTRAMEDULLARY AGUILAR WAS PLACED IN THE FEMUR. A DISTAL FEMORAL CUT WAS MADE IN 5 DEGREES OF VALGUS REMOVING APPROXIMATELY 9 MM OF BONE FROM THE DISTAL FEMUR. THE FEMUR WAS SIZED TO 57.5. A 57.5 FEMORAL CUTTING BLOCK WAS PLACED IN 3 DEGREES OF EXTERNAL ROTATION AND IN ALIGNMENT WITH TRENA'S LINE AND THE TRANSEPICONDYLAR AXIS. ANTERIOR POSTERIOR AND CHAMFER CUTS WERE MADE. THE CUTS WERE EXCELLENT. NEXT AN INTRAMEDULLARY CUTTING GUIDE WAS PLACED IN THE TIBIA. A TRANS TIBIAL CUT WAS MADE ALONG THE LONG AXIS OF THE TIBIA. APPROXIMATELY 10 MM OF BONE WAS REMOVED FROM THE HIGH SIDE OF THE TIBIA. THE TIBIA WAS THEN PLANED TO A SMOOTH SURFACE. POSTERIOR FEMORAL OSTEOPHYTES WERE REMOVED FROM THE FEMORAL CONDYLES. A 67 TIBIAL TRIAL WAS PLACED IN ALIGNMENT WITH THE 1/3 MEDIAL ASPECT OF THE TIBIAL TUBERCLE. THEN A 57.5 FEMORAL TRIAL COMPONENT WAS PLACED. BOTH HAD EXCELLENT FITS. EVENTUALLY A 14 MM CR POLYETHYLENE TRIAL COMPONENT WAS PLACED. THE KNEE WAS TAKEN THROUGH A RANGE OF MOTION. THE KNEE CAME OUT TO FULL EXTENSION. THERE WAS NO ABNORMAL TILT TO THE PATELLA. THERE WAS GOOD A/P AND VARUS/VALGUS STABILITY. THERE WAS NO EXCESSIVE ROLL BACK WITH FLEXION. THE TRIAL COMPONENTS WERE REMOVED. THEN A 57.5 FEMORAL COMPONENT AND 67.5 TIBIAL COMPONENT WITH A 14 CR POLYETHYLENE COMPONENT WERE CEMENTED INTO PLACE. ONCE THE CEMENT WAS HARD THE KNEE WAS TAKEN THROUGH A ROM AGAIN AND FOUND TO BE STABLE WITH NO PATELLA TILT NO EXCESSIVE ROLL BACK WITH FLEXION AND GOOD STABILITY WITH COMPLETE AND FULL EXTENSION. THE KNEE WAS IRRIGATED WITH STERILE BETADINE AND WATER FOR ABOUT 3 MINUTES. THE BLEEDERS WERE CAUTERIZED. THE ARTHROTOMY WAS REPAIRED WITH NUMBER 1 VICRYL. THE SUB CUTANEOUS LAYER WITH 2-0 VICRYL AND THE SKIN WITH 3-0 STRATAFIX AND DERMABOND. THE WOUND WAS WASHED AND A STERILE DRESSING WAS APPLIED. PATIENT WAS EXTUBATED. Estimated Blood Loss -150.0 Pathology None sent Complications No immediate complications Condition Stable Disposition PACU
[2024-12-16] MEDS: fentaNYL CITRATE INJ (*CRX) 100 MCG/2 ML VIAL 25 MCG IV PUSH ×8 (10:20→11:23)
--- NOTE | 2024-12-16 12:15 | ADMGEN ---
This patient, Arti Rodas, was admitted to 3 [facility] Surg Room 321-02. Patient/family oriented to hospital policies and general routines including ID bracelet, bed and alarms, visiting hours, pain management, procedures, bathroom and other care routines, personal items, smoking policy, room service/diet, and visiting hours. Information on how to activate the Rapid Response Team has been discussed. Patient/Family are encouraged to report perceived risks to care and to ask questions if they do not understand what they are told or what they should do.
[2024-12-16] MEDS: KETOROLAC 15 MG/ML VIAL (*BKC) IV PUSH ×2 (13:05→17:12)
[2024-12-16] MEDS: LOSARTAN POTASSIUM 100 MG TABLET PO (14:05)
[2024-12-16] MEDS: ROSUVASTATIN 20 MG TABLET PO (14:05)
[2024-12-16] MEDS: hydroCHLOROthiazide 12.5 MG CAPSULE PO (14:05)
[2024-12-16] MEDS: oxyCODONE/ACETAMINOPHEN (*CRX) 5-325 MG TABLET 1 TABLET PO (14:09)
[2024-12-16 16:16] LABS: Glucose Point of Care 157 mg/dl (65-105)
[2024-12-16] MEDS: FAMOTIDINE 20 MG TABLET PO (20:09)
[2024-12-16] MEDS: ASPIRIN 81 MG ENTERIC TABLET PO (20:09)
[2024-12-17] VITALS (9 sets, daily range): BP systolic 98–132; BP diastolic 41–62; PULSE 66–88; RESP 12–18; TEMP 36.2–36.8; O2SAT 95–100
--- NOTE | ~2024-12-17 | XR_ITS ---
EXAMINATION: [id number] DATE: 12/16/2024 10:26 INDICATION: Postoperative evaluation following left total knee arthroplasty. TECHNIQUE: Anteroposterior and lateral views of the left knee were obtained. COMPARISON: None. FINDINGS: Left total knee arthroplasty without patellar resurfacing appears well seated and in near anatomic al ignment. No fractures identified. Expected postoperative subcutaneous, intramedullary and intra-dwight cular gas. IMPRESSION: 1. Left total knee arthroplasty, negative for postoperative purposes. Reviewed, dictated and finalized at location A.
[2024-12-17] MEDS: KETOROLAC 15 MG/ML VIAL (*BKC) IV PUSH ×3 (00:52→11:13)
[2024-12-17] MEDS: ceFAZolin 2 GM/D5W 50 ML 2 GM/50 ML BAG IVPB ×2 (00:57→09:15)
[2024-12-17] MEDS: ONDANSETRON INJ 4 MG/2 ML VIAL IV PUSH (05:30)
[2024-12-17 06:17] LABS: Basophils Percent Auto 0.2 % (0.2-1.2); Hematocrit 30.7 % (37.0-47.0); Immature Granulocyte Absolute 0.06 K/mm3 (0.00-0.031); Immature Granulocyte Percent A 0.4 % (0-0.5); Lymphocytes Absolute Auto 2.64 K/mm3 (0.9-3.2); Lymphocytes Percent Auto 18.9 % (18.3-44.2); Mean Corpuscular HGB Conc 32.6 g/dl (32-36); Mean Corpuscular Hemoglobin 29.7 pg (26-34); Mean Corpuscular Volume 91.1 fl (80-100); Mean Platelet Volume 9.6 fl (7.4-10.4); Monocytes Absolute Auto 1.4 K/mm3 (0.1-0.6); Monocytes Percent Auto 10.3 % (2.6-8.5); Neutrophils Absolute Auto 9.8 K/mm3 (1.3-6.7); Neutrophils Percent Auto 70.2 % (45.5-73.1); Platelet Count Result 172 k/mm3 (150-375); Red Blood Count 3.37 M/mm3 (4.2-5.4); Red Cell Distribution Width 12.2 % (11.5-14.5); White Blood Count 13.9 K/mm3 (4.5-10.0)
[2024-12-17 06:28] LABS: Anion Gap 8 mmol/L (4-12); Blood Urea Nitrogen 23 mg/dL (7-17); Carbon Dioxide 24 mmol/L (22-30); Chloride 105 mmol/L (98-107); Estimated CRCL calculation 48 ml/min; Estimated Glomerular Filt Rate > 60; Glucose 141 mg/dL (65-110); Potassium 3.7 mmol/L (3.4-5.0); Sodium 137 mmol/L (137-145)
[2024-12-17] MEDS: HYDROcodone/acetaminophen (*CRX) 10-325 MG TABLET 1 TAB PO ×3 (09:14→17:31)
[2024-12-17] MEDS: ASPIRIN 81 MG ENTERIC TABLET PO ×2 (09:16→20:17)
[2024-12-17] MEDS: ROSUVASTATIN 20 MG TABLET PO (09:16)
[2024-12-17] MEDS: SENNA/DOCUSATE SODIUM TABLET 2 TAB PO ×2 (09:16→17:31)
[2024-12-17] MEDS: LOSARTAN POTASSIUM 100 MG TABLET PO (09:16)
[2024-12-17] MEDS: FAMOTIDINE 20 MG TABLET PO ×2 (09:16→20:17)
[2024-12-17] MEDS: hydroCHLOROthiazide 12.5 MG CAPSULE PO (09:16)
[2024-12-17] MEDS: polyethylene glycoL 3350 17 GM POWD.PACK PO (09:16)
[2024-12-17] MEDS: CHOLECALCIFEROL 5,000 UNITS TABLET 5000 UNITS BY MOUTH (09:16)
--- NOTE | 2024-12-17 10:00 | PM.PNORT ---
Progress Note: A&P Assessment and Plan (1) S/P total knee arthroplasty: Qualifiers: Laterality: right Qualified Code(s): Z96.651 - Presence of right artificial knee joint Code(s): Z96.659 - Presence of unspecified artificial knee joint Status: Acute Assessment and Plan: POD #1 : Right TKA Continue PT/OT. WBAT. Walker. HIGH FALL RISK. Continue pain control. Ice Knee. Protect skin. DVT prophylaxis with Aspirin. SCDs. Incentive Spirometry Use reviewed. Monitor Dressing. Change prior to discharge. Bowel Regimen. Dispo: Home with Home Health pending progress with PT/OT Plan Reviewed history, exam, radiographs and current labs with attending MD and covering surgeon, Dr. Rutherford, who agrees with current plan as indicated above. No further recommendations from Dr. Rutherford at this time. Subjective Subjective Date/Time Seen: 12/17/24 10:00 Post Op day: 1 Interval history: POD #1: Right TKA Patient with complaints of uncontrolled pain today. No pain medications administered overnight. Slow progress by PT/OT. Dizziness with standing. Review of Systems Review of Systems: All systems reviewed & are unremarkable except as noted in HPI and below Exam Const: General: comfortable and no acute distress Resp: Effort & Inspection: normal respiratory effort Cardio: Rate: regular rate Rhythm: regular rhythm GI: GI Palp: Yes Soft to palpation, No Tenderness to palpation present (GI) and No Guarding due to palpation present (GI) Skin: General skin exam: wounds noted Wounds: wounds noted Other: Incision c/d/i. No surrounding redness/warmth. No hematoma. Mild ecchymosis. No wound dehiscence Neuro: Cognition (Neuro): normal cognition Other: NV intact aside from block. Moves toes. Sensation intact to light touch. +ankle dorsiflexion/plantarflexion. Extrem: Right lower extremity: normal to inspection, knee Details: tenderness (diffuse, mild ) Location: of the patella, swelling (diffuse, consistent with surgical intervention ), abnormal ROM Details: pain with active ROM during, pain with passive ROM during and with range as follows (limited due to recent surgical intervention ); able to extend lower leg actively and ecchymosis (mild ), lower leg (Negative Lali's Sign ) Details: normal to inspection; no erythema and no tenderness, ankle (+ankle dorsiflexion/plantarflexion ) Details: normal to inspection, no edema and normal ROM; no tenderness, no swelling and no ecchymosis and foot Details: normal capillary refill, normal to inspection, vascular exam Details: dorsalis pedis pulse present and motor-sensory exam Details: light-touch normal; no tenderness Left lower extremity: normal to inspection Psych: Mental Status: mental status grossly normal Objective Data Vital Signs Vital Signs: Vital Signs - 24 hr 12/16/24 10:15 12/16/24 10:30 12/16/24 10:45 Temperature Pulse Rate 94 94 93 Respiratory Rate 15 14 14 Blood Pressure 149/95 H 161/78 H 144/71 H Pulse Oximetry 100 100 97 Oxygen Delivery Simple Face Mask Simple Face Mask Room Air Oxygen Flow Rate 8 8 12/16/24 11:00 12/16/24 11:15 12/16/24 11:30 Temperature Pulse Rate 93 91 92 Respiratory Rate 12 18 11 L Blood Pressure 137/80 150/68 H 156/72 H Pulse Oximetry 100 99 100 Oxygen Delivery Room Air Room Air Room Air Oxygen Flow Rate 12/16/24 11:44 12/16/24 12:06 12/16/24 12:21 Temperature 36.9 C 36.9 C Pulse Rate 92 94 95 Respiratory Rate 10 L 12 12 Blood Pressure 156/84 H 135/87 154/68 H Pulse Oximetry 93 95 96 Oxygen Delivery Room Air Oxygen Flow Rate 12/16/24 12:51 12/16/24 13:00 12/16/24 13:51 Temperature 36.9 C 36.9 C Pulse Rate 90 88 Respiratory Rate 12 14 Blood Pressure 144/70 H 139/66 Pulse Oximetry 99 99 Oxygen Delivery Room Air Oxygen Flow Rate 12/16/24 17:51 12/16/24 20:10 12/16/24 21:02 Temperature 36.7 C 36.6 C Pulse Rate 84 84 82 Respiratory Rate 16 16 12 Blood Pressure 141/65 H 129/62 Pulse Oximetry 97 97 98 Oxygen Delivery Room Air Oxygen Flow Rate 12/17/24 01:32 12/17/24 05:32 12/17/24 08:28 Temperature 36.4 C L 36.7 C Pulse Rate 75 66 Respiratory Rate 12 14 Blood Pressure 130/62 123/46 L 108/58 L Pulse Oximetry 95 100 Oxygen Delivery Oxygen Flow Rate 12/17/24 08:30 12/17/24 09:32 Temperature 36.7 C Pulse Rate 75 Respiratory Rate 18 Blood Pressure 98/41 L 127/59 L Pulse Oximetry 100 Oxygen Delivery Oxygen Flow Rate Intake/Output Intake/Output: Intake & Output 12/14/24 12/15/24 12/16/24 12/17/24 23:59 23:59 23:59 23:59 Intake Total 1280 350 Balance 1280 350 Meds/Results Medications: Active Medications Generic Name Dose Route Start Last Admin Trade Name Freq PRN Reason Stop Dose Admin Acetaminophen 500 mg 12/16/24 11:47 Acetaminophen 500 Mg Tablet PO Q6H PRN Pain Rated 1-3 Hydrocodone Bitart/Acetaminophen 1 tab 12/16/24 11:47 12/17/24 09:14 Hydrocodone/Acetaminophen (*Crx) 10-325 Mg Tablet PO 1 tab Q4H PRN Administration Pain Rated 7-10 Alendronate Sodium 70 mg 12/22/24 09:00 Alendronate Sodium 70 Mg Tablet PO WEEKLY MARIA EUGENIA Aspirin 81 mg 12/16/24 11:47 12/17/24 09:16 Aspirin 81 Mg Enteric Tablet PO 81 mg Q12HR MARIA EUGENIA Administration Diazepam 5 mg 12/16/24 11:47 Diazepam (*Crx) 5 Mg Tablet PO Q8H PRN Spasms Diphenhydramine HCl 25 mg 12/16/24 11:47 Diphenhydramine Hcl Inj 50 Mg/Ml Vial IV PUSH Q6H PRN Itching Famotidine 20 mg 12/16/24 11:47 12/17/24 09:16 Famotidine 20 Mg Tablet PO 20 mg Q12HR MARIA EUGENIA Administration Hydrochlorothiazide 12.5 mg 12/16/24 13:00 12/17/24 09:16 Hydrochlorothiazide 12.5 Mg Capsule PO 12.5 mg QAM MARIA EUGENIA Administration Hydromorphone HCl 1 mg 12/16/24 11:47 Hydromorphone Hcl Inj (*Crx) 1 Mg/Ml Syr IV PUSH Q2H PRN Breakthrough Pain Rated 7-10 or NPO Hydromorphone HCl 0.5 mg 12/16/24 11:47 Hydromorphone Hcl Inj (*Crx) 1 Mg/Ml Syr IV PUSH Q2H PRN Breakthrough Pain Rated 4-6 or NPO Ibuprofen 800 mg in 200 mls @ 400 mls/hr 12/16/24 11:47 Caldolor 800 Mg/200 Ml IVPB Q6H PRN Breakthrough Pain Rated 1-3 or NPO Ketorolac Tromethamine 15 mg 12/16/24 12:00 12/17/24 05:30 Ketorolac 15 Mg/Ml Vial (*Bkc) IV PUSH 12/17/24 12:01 15 mg Q6HR MARIA EUGENIA Administration Losartan Potassium 100 mg 12/16/24 13:00 12/17/24 09:16 Losartan Potassium 100 Mg Tablet PO 100 mg QAM MARIA EUGENIA Administration Miscellaneous Information 1 each 12/16/24 00:01 Humira Nonformulary. Can Patient Use Form Home Or Hold Till Discharge? XX 01/15/25 00:00 CLARIFY MARIA EUGENIA Naloxone HCl 0.1 mg 12/16/24 11:47 Naloxone Hcl 0.4 Mg/Ml Vial IV PUSH Q2M PRN Opiate Reversal Non-Formulary Medication 40 mg 12/16/24 11:47 Adalimumab [Humira] SUB-Q 01/15/25 11:46 [id number] MARIA EUGENIA Ondansetron HCl 4 mg 12/16/24 11:47 12/17/24 05:30 Ondansetron Inj 4 Mg/2 Ml Vial IV PUSH 4 mg Q4H PRN Administration Nausea And Vomiting Oxycodone/Acetaminophen 1 tablet 12/16/24 11:47 12/16/24 14:09 Oxycodone/Acetaminophen (*Crx) 5-325 Mg Tablet PO 1 tablet Q4H PRN Administration Pain Rated 4-6 Polyethylene Glycol 17 gm 12/16/24 11:47 12/17/24 09:16 Polyethylene Glycol 3350 17 Gm Powd.Pack PO 17 gm QAM MARIA EUGENIA Administration Rosuvastatin Calcium 20 mg 12/16/24 11:47 12/17/24 09:16 Rosuvastatin 20 Mg Tablet PO 20 mg DAILY MARIA EUGENIA Administration Senna/Docusate Sodium 2 tab 12/16/24 11:47 12/17/24 09:16 Senna/Docusate Sodium Tablet PO 2 tab BID MARIA EUGENIA Administration Vitamin D 5,000 units 12/17/24 09:00 12/17/24 09:16 Cholecalciferol 5,000 Units Tablet BY MOUTH 5,000 units DAILY MARIA EUGENIA Administration Radiology Results: ITS Impressions Knee X-Ray 12/16/24 10:33 IMPRESSION: 1. Left total knee arthroplasty, negative for postoperative purposes. Labs Labs: Laboratory Results - last 24 hr 12/16/24 12/17/24 16:11 06:03 WBC 13.9 H RBC 3.37 L Hgb 10.0 L D Hct 30.7 L MCV 91.1 MCH 29.7 MCHC 32.6 RDW 12.2 Plt Count 172 MPV 9.6 Immature Gran % (Auto) 0.4 Neut % (Auto) 70.2 Lymph % (Auto) 18.9 [place] % (Auto) 10.3 H Eos % (Auto) 0.0 Baso % (Auto) 0.2 Lymph # (Auto) 2.64 [place] # (Auto) 1.4 H Eos # (Auto) 0.0 Baso # (Auto) 0.0 Abs Immat Gran (auto) 0.06 H Absolute Neuts (auto) 9.8 H Absolute Nucleated RBC 0.000 Nucleated RBC % 0.0 Sodium 137 Potassium 3.7 Chloride 105 Carbon Dioxide 24 Anion Gap 8 BUN 23 H Creatinine 0.87 Estim Creat Clear Calc 48 Estimated GFR > 60 Glucose 141 H POC Capillary Glucose 157 H Calcium 8.0 L
[2024-12-17 18:31] LABS: Basophils Percent Auto 0.3 % (0.2-1.2); Hematocrit 30.9 % (37.0-47.0); Immature Granulocyte Absolute 0.05 K/mm3 (0.00-0.031); Immature Granulocyte Percent A 0.4 % (0-0.5); Lymphocytes Absolute Auto 3.18 K/mm3 (0.9-3.2); Lymphocytes Percent Auto 25.5 % (18.3-44.2); Mean Corpuscular HGB Conc 32.4 g/dl (32-36); Mean Corpuscular Hemoglobin 29.7 pg (26-34); Mean Corpuscular Volume 91.7 fl (80-100); Mean Platelet Volume 9.9 fl (7.4-10.4); Monocytes Absolute Auto 1.2 K/mm3 (0.1-0.6); Monocytes Percent Auto 9.5 % (2.6-8.5); Neutrophils Percent Auto 64.3 % (45.5-73.1); Platelet Count Result 177 k/mm3 (150-375); Red Blood Count 3.37 M/mm3 (4.2-5.4); Red Cell Distribution Width 12.6 % (11.5-14.5); White Blood Count 12.5 K/mm3 (4.5-10.0)
[2024-12-17 18:46] LABS: Anion Gap 9 mmol/L (4-12); Blood Urea Nitrogen 25 mg/dL (7-17); Calcium 8.4 mg/dL (8.4-10.2); Carbon Dioxide 25 mmol/L (22-30); Chloride 104 mmol/L (98-107); Estimated CRCL calculation 44 ml/min; Estimated Glomerular Filt Rate 57; Glucose 142 mg/dL (65-110); Potassium 3.4 mmol/L (3.4-5.0); Sodium 138 mmol/L (137-145)
[2024-12-17] MEDS: HYDROmorphone HCL INJ (*CRX) 2 MG/ML VIAL 1 MG IV PUSH (20:18)
--- NOTE | 2024-12-17 21:18 | PHAR ---
PT'S HOME MED HUMIRA 40 MG/0.4 ML INJECTION VERIFIED BY PHARMACY
--- NOTE | 2024-12-17 23:44 | PC.NURSE ---
Pt. resting in bed with eyes closed, no signs or symptoms of pain/discomfort.
[2024-12-18] MEDS: HYDROcodone/acetaminophen (*CRX) 10-325 MG TABLET 1 TAB PO ×2 (00:36→06:13)
--- NOTE | 2024-12-18 02:49 | PC.NURSE ---
Pt. resting in bed with eyes closed. No signs/symptoms of discomfort/pain.
--- NOTE | 2024-12-18 04:09 | PC.NURSE ---
Pt. resting in bed with eyes closed and lights off. No signs or symptoms of pain/discomfort.
[2024-12-18] MEDS: diazePAM (*CRX) 5 MG TABLET PO (05:00)
[2024-12-18 06:00] VITALS: BP 126/55; PULSE 83; RESP 18; TEMP 35.7; O2SAT 99
--- NOTE | 2024-12-18 06:05 | PC.NURSE ---
Pt. resting in bed with eyes closed. No signs or symptoms of pain/discomfort.
[2024-12-18 08:00] VITALS: O2SAT 99
--- NOTE | 2024-12-18 08:05 | PCPTNOTE ---
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 RN reported she will get pain medication for patient.
[2024-12-18] MEDS: HYDROmorphone HCL INJ (*CRX) 2 MG/ML VIAL 1 MG IV PUSH (08:17)
[2024-12-18] MEDS: IBUPROFEN IV 800 MG/200 ML 800 MG/200 ML BAG 400 MG IVPB ×2 (08:18→15:48)
--- NOTE | 2024-12-18 09:41 | PM.PNORT ---
Progress Note: A&P Assessment and Plan (1) S/P total knee arthroplasty: Qualifiers: Laterality: right Qualified Code(s): Z96.651 - Presence of right artificial knee joint Code(s): Z96.659 - Presence of unspecified artificial knee joint Status: Acute Assessment and Plan: POD #2: Right TKA Continue PT/OT. WBAT. Walker. HIGH FALL RISK. Continue pain control. Ice Knee. Protect skin. Transitioning to Percocet. STOP IV Pain Medication. DVT prophylaxis with Aspirin 325 mg PO BID. SCDs. Incentive Spirometry Use reviewed. Monitor Dressing. Change prior to discharge. Bowel Regimen. Dispo: Home with Home Health pending progress with PT/OT Plan Reviewed history, exam, radiographs and current labs with attending MD and covering surgeon, Dr. Rutherford, who agrees with current plan as indicated above. No further recommendations from Dr. Rutherford at this time. Time Spent With Patient Time with patient: less than 15 minutes Subjective Subjective Date/Time Seen: 12/18/24 09:41 Post Op day: 2 Interval history: POD #2: Right TKA Patient still with difficulty with pain control. Improvement in dizziness with standing. Tolerating PO intake well. Hopeful for d/c home today pending improvement in pain control and PT/OT. Review of Systems Review of Systems: All systems reviewed & are unremarkable except as noted in HPI and below Exam Const: General: comfortable and no acute distress Resp: Effort & Inspection: normal respiratory effort Cardio: Rate: regular rate Rhythm: regular rhythm GI: GI Palp: Yes Soft to palpation, No Tenderness to palpation present (GI) and No Guarding due to palpation present (GI) Skin: General skin exam: wounds noted Wounds: wounds noted Other: Incision c/d/i. No surrounding redness/warmth. No hematoma. Mild ecchymosis. No wound dehiscence Neuro: Cognition (Neuro): normal cognition Other: Moves toes. Sensation intact to light touch. +ankle dorsiflexion/plantarflexion. Extrem: Right lower extremity: normal to inspection, knee Details: tenderness (diffuse, mild ) Location: of the patella, swelling (diffuse, consistent with surgical intervention ), abnormal ROM Details: pain with active ROM during, pain with passive ROM during and with range as follows (limited due to recent surgical intervention ); able to extend lower leg actively and ecchymosis (mild ), lower leg (Negative Lali's Sign ) Details: normal to inspection; no erythema and no tenderness, ankle (+ankle dorsiflexion/plantarflexion ) Details: normal to inspection, no edema and normal ROM; no tenderness, no swelling and no ecchymosis and foot Details: normal capillary refill, normal to inspection, vascular exam Details: dorsalis pedis pulse present and motor-sensory exam Details: light-touch normal; no tenderness Left lower extremity: normal to inspection Psych: Mental Status: mental status grossly normal Objective Data Vital Signs Vital Signs: Vital Signs - 24 hr 12/17/24 13:32 12/17/24 20:00 12/17/24 20:40 Temperature 36.2 C L 36.6 C Pulse Rate 74 88 Respiratory Rate 16 16 Blood Pressure 132/45 L 132/59 L Pulse Oximetry 100 100 Oxygen Delivery Room Air 12/17/24 22:00 12/18/24 06:00 Temperature 36.8 C 35.7 C L Pulse Rate 86 83 Respiratory Rate 16 18 Blood Pressure 129/59 L 126/55 L Pulse Oximetry 98 99 Oxygen Delivery Intake/Output Intake/Output: Intake & Output 12/15/24 12/16/24 12/17/24 12/18/24 23:59 23:59 23:59 23:59 Intake Total 1280 710 Balance 1280 710 Meds/Results Medications: Active Medications Generic Name Dose Route Start Last Admin Trade Name Freq PRN Reason Stop Dose Admin Acetaminophen 500 mg 12/16/24 11:47 Acetaminophen 500 Mg Tablet PO Q6H PRN Pain Rated 1-3 Alendronate Sodium 70 mg 12/22/24 09:00 Alendronate Sodium 70 Mg Tablet PO WEEKLY [facility] Aspirin 325 mg 12/18/24 17:00 Aspirin 325 Mg Enteric Tablet PO BID [facility] Diazepam 5 mg 12/16/24 11:47 12/18/24 05:00 Diazepam (*Crx) 5 Mg Tablet PO 5 mg Q8H PRN Administration Spasms Diphenhydramine HCl 25 mg 12/16/24 11:47 Diphenhydramine Hcl Inj 50 Mg/Ml Vial IV PUSH Q6H PRN Itching Famotidine 20 mg 12/16/24 11:47 12/17/24 20:17 Famotidine 20 Mg Tablet PO 20 mg Q12HR MARIA EUGENIA Administration Hydrochlorothiazide 12.5 mg 12/16/24 13:00 12/17/24 09:16 Hydrochlorothiazide 12.5 Mg Capsule PO 12.5 mg QAM MARIA EUGENIA Administration Ibuprofen 800 mg in 200 mls @ 400 mls/hr 12/16/24 11:47 12/18/24 08:18 Caldolor 800 Mg/200 Ml IVPB 400 mls/hr Q6H PRN Administration Breakthrough Pain Rated 1-3 or NPO Losartan Potassium 100 mg 12/16/24 13:00 12/17/24 09:16 Losartan Potassium 100 Mg Tablet PO 100 mg QAM MARIA EUGENIA Administration Naloxone HCl 0.1 mg 12/16/24 11:47 Naloxone Hcl 0.4 Mg/Ml Vial IV PUSH Q2M PRN Opiate Reversal Non-Formulary ( 0 each 12/18/24 09:00 Adalimumab 40 Mg/0.4 SUB-Q 01/17/25 08:59 Ml Subcutaneous Pen Q14D [facility] Injector Kit) Ondansetron HCl 4 mg 12/16/24 11:47 12/17/24 05:30 Ondansetron Inj 4 Mg/2 Ml Vial IV PUSH 4 mg Q4H PRN Administration Nausea And Vomiting Oxycodone/Acetaminophen 1 tablet 12/16/24 11:47 12/16/24 14:09 Oxycodone/Acetaminophen (*Crx) 5-325 Mg Tablet PO 1 tablet Q4H PRN Administration Pain Rated 4-6 Oxycodone/Acetaminophen 1 tab 12/18/24 09:39 Oxycodone/Acetaminophen (*Crx) 10-325 Mg Tablet PO Q4H PRN Pain Rated 7-10 Polyethylene Glycol 17 gm 12/16/24 11:47 12/17/24 09:16 Polyethylene Glycol 3350 17 Gm Powd.Pack PO 17 gm QAM MARIA EUGENIA Administration Rosuvastatin Calcium 20 mg 12/16/24 11:47 12/17/24 09:16 Rosuvastatin 20 Mg Tablet PO 20 mg DAILY MARIA EUGENIA Administration Senna/Docusate Sodium 2 tab 12/16/24 11:47 12/17/24 17:31 Senna/Docusate Sodium Tablet PO 2 tab BID MARIA EUGENIA Administration Vitamin D 5,000 units 12/17/24 09:00 12/17/24 09:16 Cholecalciferol 5,000 Units Tablet BY MOUTH 5,000 units DAILY MARIA EUGENIA Administration Radiology Results: ITS Impressions Knee X-Ray 12/16/24 10:33 IMPRESSION: 1. Left total knee arthroplasty, negative for postoperative purposes. Labs Labs: Laboratory Results - last 24 hr 12/17/24 18:07 WBC 12.5 H RBC 3.37 L Hgb 10.0 L Hct 30.9 L MCV 91.7 MCH 29.7 MCHC 32.4 RDW 12.6 Plt Count 177 MPV 9.9 Immature Gran % (Auto) 0.4 Neut % (Auto) 64.3 Lymph % (Auto) 25.5 [place] % (Auto) 9.5 H Eos % (Auto) 0.0 Baso % (Auto) 0.3 Lymph # (Auto) 3.18 [place] # (Auto) 1.2 H Eos # (Auto) 0.0 Baso # (Auto) 0.0 Abs Immat Gran (auto) 0.05 H Absolute Neuts (auto) 8.0 H Absolute Nucleated RBC 0.000 Nucleated RBC % 0.0 Sodium 138 Potassium 3.4 Chloride 104 Carbon Dioxide 25 Anion Gap 9 BUN 25 H Creatinine 0.97 Estim Creat Clear Calc 44 Estimated GFR 57 L Glucose 142 H Calcium 8.4
[2024-12-18] MEDS: ONDANSETRON INJ 4 MG/2 ML VIAL IV PUSH (09:46)
[2024-12-18] MEDS: polyethylene glycoL 3350 17 GM POWD.PACK PO (09:50)
[2024-12-18] MEDS: CHOLECALCIFEROL 5,000 UNITS TABLET 5000 UNITS BY MOUTH (09:51)
[2024-12-18] MEDS: SENNA/DOCUSATE SODIUM TABLET 2 TAB PO ×2 (09:51→15:47)
[2024-12-18] MEDS: LOSARTAN POTASSIUM 100 MG TABLET PO (09:51)
[2024-12-18] MEDS: ROSUVASTATIN 20 MG TABLET PO (09:51)
[2024-12-18] MEDS: hydroCHLOROthiazide 12.5 MG CAPSULE PO (09:51)
[2024-12-18] MEDS: FAMOTIDINE 20 MG TABLET PO ×2 (09:51→20:24)
[2024-12-18] MEDS: ASPIRIN 325 MG ENTERIC TABLET PO ×2 (09:54→15:49)
--- NOTE | 2024-12-18 10:07 | PCPTNOTE ---
Attempted to see patient for PT, however patient was just getting done working with OT and wanted a rest break before working with PT.
[2024-12-18] MEDS: oxyCODONE/ACETAMINOPHEN (*CRX) 10-325 MG TABLET 1 TAB PO ×2 (11:39→15:48)
[2024-12-18 14:00] VITALS: BP 136/62; PULSE 87; RESP 20; TEMP 36.4; O2SAT 100
[2024-12-18 20:11] VITALS: BP 146/59; PULSE 90; RESP 16; TEMP 36.4; O2SAT 100
[2024-12-18] MEDS: oxyCODONE/ACETAMINOPHEN (*CRX) 5-325 MG TABLET 1 TABLET PO (20:24)
[2024-12-18 20:55] LABS: Glucose Point of Care 148 mg/dl (65-105)
[2024-12-19] MEDS: oxyCODONE/ACETAMINOPHEN (*CRX) 10-325 MG TABLET 1 TAB PO ×2 (00:01→11:06)
[2024-12-19 04:29] VITALS: BP 142/56; PULSE 81; RESP 18; TEMP 36.3; O2SAT 100
[2024-12-19] MEDS: oxyCODONE/ACETAMINOPHEN (*CRX) 5-325 MG TABLET 1 TABLET PO ×3 (04:33→15:30)
[2024-12-19] MEDS: ACETAMINOPHEN 500 MG TABLET PO (06:30)
[2024-12-19] MEDS: FAMOTIDINE 20 MG TABLET PO (08:18)
[2024-12-19] MEDS: ASPIRIN 325 MG ENTERIC TABLET PO (08:18)
[2024-12-19] MEDS: SENNA/DOCUSATE SODIUM TABLET 2 TAB PO (08:18)
[2024-12-19] MEDS: CHOLECALCIFEROL 5,000 UNITS TABLET 5000 UNITS BY MOUTH (08:18)
[2024-12-19] MEDS: LOSARTAN POTASSIUM 100 MG TABLET PO (08:18)
[2024-12-19] MEDS: ROSUVASTATIN 20 MG TABLET PO (08:18)
[2024-12-19] MEDS: hydroCHLOROthiazide 12.5 MG CAPSULE PO (08:18)
[2024-12-19] MEDS: polyethylene glycoL 3350 17 GM POWD.PACK PO (08:19)
[2024-12-19 08:23] VITALS: BP 128/51; PULSE 80
[2024-12-19 08:59] VITALS: O2SAT 98
--- NOTE | 2024-12-19 09:27 | PM.PNORT ---
Progress Note: A&P Assessment and Plan (1) S/P total knee arthroplasty: Qualifiers: Laterality: right Qualified Code(s): Z96.651 - Presence of right artificial knee joint Code(s): Z96.659 - Presence of unspecified artificial knee joint Status: Acute Assessment and Plan: POD #3: Right TKA Continue PT/OT. WBAT. Walker. HIGH FALL RISK. Continue pain control. Ice Knee. Protect skin. Transitioning to Percocet. DVT prophylaxis with Aspirin 325 mg PO BID. SCDs/ LAURA hose right leg. Incentive Spirometry Use reviewed. Dressing changed today. Incision clean dry and intact. Bowel Regimen. Dispo: Home with Home Health pending progress with PT/OT. Plan therapy later today. Subjective Subjective Date/Time Seen: 12/19/24 09:27 Post Op day: 3 Principal diagnosis: Left knee arthritis Interval history: Patient awake up in chair. States nausea improved. Still with significant swelling. Pain somewhat improved. Exam Const: General: comfortable and no acute distress Resp: Effort & Inspection: normal respiratory effort Cardio: Rate: regular rate Rhythm: regular rhythm Skin: General skin exam: wounds noted Wounds: wounds noted Other: Incision c/d/i. No surrounding redness/warmth. No hematoma. Mild ecchymosis. No wound dehiscence Neuro: Cognition (Neuro): normal cognition Other: Moves toes. Sensation intact to light touch. +ankle dorsiflexion/plantarflexion. Extrem: Right lower extremity: normal to inspection, knee Details: tenderness (diffuse, mild ) Location: of the patella, swelling (diffuse, consistent with surgical intervention ), abnormal ROM Details: pain with active ROM during, pain with passive ROM during and with range as follows (limited due to recent surgical intervention ); able to extend lower leg actively and ecchymosis (mild ), lower leg (Negative Lali's Sign ) Details: normal to inspection; no erythema and no tenderness, ankle (+ankle dorsiflexion/plantarflexion ) Details: normal to inspection, no edema and normal ROM; no tenderness, no swelling and no ecchymosis and foot Details: normal capillary refill, normal to inspection, vascular exam Details: dorsalis pedis pulse present and motor-sensory exam Details: light-touch normal; no tenderness Left lower extremity: normal to inspection Psych: Mental Status: mental status grossly normal Objective Data Vital Signs Vital Signs: Vital Signs - 24 hr 12/18/24 14:00 12/18/24 20:00 12/18/24 20:11 Temperature 97.5 F L 97.5 F L Pulse Rate 87 90 Respiratory Rate 20 16 Blood Pressure 136/62 146/59 H Pulse Oximetry 100 100 Oxygen Delivery Room Air 12/19/24 04:29 12/19/24 08:23 12/19/24 08:59 Temperature 97.3 F L Pulse Rate 81 80 Respiratory Rate 18 Blood Pressure 142/56 H 128/51 L Pulse Oximetry 100 98 Oxygen Delivery Room Air Intake/Output Intake/Output: Intake & Output 12/16/24 12/17/24 12/18/24 12/19/24 23:59 23:59 23:59 23:59 Intake Total 9271 777 5908 200 Balance 9883 465 3238 200 Meds/Results Medications: Active Medications Generic Name Dose Route Start Last Admin Trade Name Freq PRN Reason Stop Dose Admin Acetaminophen 500 mg 12/16/24 11:47 12/19/24 06:30 Acetaminophen 500 Mg Tablet PO 500 mg Q6H PRN Administration Pain Rated 1-3 Alendronate Sodium 70 mg 12/22/24 09:00 Alendronate Sodium 70 Mg Tablet PO WEEKLY MARIA EUGENIA Aspirin 325 mg 12/18/24 09:50 12/19/24 08:18 Aspirin 325 Mg Enteric Tablet PO 325 mg BID MARIA EUGENIA Administration Diazepam 5 mg 12/16/24 11:47 12/18/24 05:00 Diazepam (*Crx) 5 Mg Tablet PO 5 mg Q8H PRN Administration Spasms Diphenhydramine HCl 25 mg 12/16/24 11:47 Diphenhydramine Hcl Inj 50 Mg/Ml Vial IV PUSH Q6H PRN Itching Famotidine 20 mg 12/16/24 11:47 12/19/24 08:18 Famotidine 20 Mg Tablet PO 20 mg Q12HR MARIA EUGENIA Administration Hydrochlorothiazide 12.5 mg 12/16/24 13:00 12/19/24 08:18 Hydrochlorothiazide 12.5 Mg Capsule PO 12.5 mg QAM MARIA EUGENIA Administration Ibuprofen 800 mg in 200 mls @ 400 mls/hr 12/16/24 11:47 12/18/24 15:48 Caldolor 800 Mg/200 Ml IVPB 400 mls/hr Q6H PRN Administration Breakthrough Pain Rated 1-3 or NPO Losartan Potassium 100 mg 12/16/24 13:00 12/19/24 08:18 Losartan Potassium 100 Mg Tablet PO 100 mg QAM MARIA EUGENIA Administration Naloxone HCl 0.1 mg 12/16/24 11:47 Naloxone Hcl 0.4 Mg/Ml Vial IV PUSH Q2M PRN Opiate Reversal Non-Formulary ( 0 each 12/18/24 09:00 12/18/24 09:51 Adalimumab 40 Mg/0.4 SUB-Q 01/17/25 08:59 Not Given Ml Subcutaneous Pen Q14D [facility] Injector Kit) Ondansetron HCl 4 mg 12/16/24 11:47 12/18/24 09:46 Ondansetron Inj 4 Mg/2 Ml Vial IV PUSH 4 mg Q4H PRN Administration Nausea And Vomiting Oxycodone/Acetaminophen 1 tablet 12/16/24 11:47 12/19/24 08:19 Oxycodone/Acetaminophen (*Crx) 5-325 Mg Tablet PO 1 tablet Q4H PRN Administration Pain Rated 4-6 Oxycodone/Acetaminophen 1 tab 12/18/24 09:39 12/19/24 00:01 Oxycodone/Acetaminophen (*Crx) 10-325 Mg Tablet PO 1 tab Q4H PRN Administration Pain Rated 7-10 Polyethylene Glycol 17 gm 12/16/24 11:47 12/19/24 08:19 Polyethylene Glycol 3350 17 Gm Powd.Pack PO 17 gm QAM MARIA EUGENIA Administration Rosuvastatin Calcium 20 mg 12/16/24 11:47 12/19/24 08:18 Rosuvastatin 20 Mg Tablet PO 20 mg DAILY MARIA EUGENIA Administration Senna/Docusate Sodium 2 tab 12/16/24 11:47 12/19/24 08:18 Senna/Docusate Sodium Tablet PO 2 tab BID MARIA EUGENIA Administration Vitamin D 5,000 units 12/17/24 09:00 12/19/24 08:18 Cholecalciferol 5,000 Units Tablet BY MOUTH 5,000 units DAILY MARIA EUGENIA Administration Radiology Results: ITS Impressions Knee X-Ray 12/16/24 10:33 IMPRESSION: 1. Left total knee arthroplasty, negative for postoperative purposes. Labs Labs: Laboratory Results - last 24 hr 12/18/24 20:15 POC Capillary Glucose 148 H
[2024-12-19 14:00] VITALS: BP 143/60; PULSE 78; RESP 16; TEMP 36.1; O2SAT 100
--- NOTE | 2024-12-21 12:01 | PM.DS ---
DS: Admitting Diagnosis Discharge Date 12/19/24 Admitting Diagnosis Left knee arthritis DS: Discharge Diagnosis Discharge Diagnosis Plan left knee arthritis, status post total knee arthroplasty DS: Summary Hospital Course Reason for hospitalization: 69-year-old woman With left knee arthritis and pain, presents to hospital for planned left total knee arthroplasty. Hospital Course: taken to the operating room on December 16 for left total knee arthroplasty which was performed without complication. Admitted to the floor postoperatively in stable condition. Physical therapy and occupational therapy postoperatively. Pain control. DVT prophylaxis with medication and SCDs. Recovery somewhat prolonged due to swelling and pain but patient eventually progressed well. Postoperative day 3 was tolerating regular diet, pain controlled with oral medication and was cleared by Physical therapy for discharge. Status at Discharge Functional status at discharge: uses cane/walker Overall status at discharge: patient is back to baseline Time Spent with Patient Time attestation: Total time spent providing and/or coordinating discharge services: Exam Const: General: comfortable and no acute distress Resp: Effort & Inspection: normal respiratory effort Cardio: Rate: regular rate Rhythm: regular rhythm Skin: General skin exam: wounds noted Wounds: wounds noted Other: Incision c/d/i. No surrounding redness/warmth. No hematoma. Mild ecchymosis. No wound dehiscence Neuro: Cognition (Neuro): normal cognition Other: Moves toes. Sensation intact to light touch. +ankle dorsiflexion/plantarflexion. Extrem: Right lower extremity: normal to inspection, knee Details: tenderness (diffuse, mild ) Location: of the patella, swelling (diffuse, consistent with surgical intervention ), abnormal ROM Details: pain with active ROM during, pain with passive ROM during and with range as follows (limited due to recent surgical intervention ); able to extend lower leg actively and ecchymosis (mild ), lower leg (Negative Lali's Sign ) Details: normal to inspection; no erythema and no tenderness, ankle (+ankle dorsiflexion/plantarflexion ) Details: normal to inspection, no edema and normal ROM; no tenderness, no swelling and no ecchymosis and foot Details: normal capillary refill, normal to inspection, vascular exam Details: dorsalis pedis pulse present and motor-sensory exam Details: light-touch normal; no tenderness Left lower extremity: normal to inspection Psych: Mental Status: mental status grossly normal Discharge Plan Discharge Attending physician on discharge: Hussain Rutherford Consulting providers: Antonio Paredes; Alice Rodriguez Paul Discharging Clinician: Alice Rodriguez Patient Disposition: Home with Home Health Service Activity: may shower, no driving and follow weight bearing status Diet: as tolerated Wound Care Instructions: follow printed instructions Discharge Instructions: Per Care Coordination: [facility] ([phone]) will call you to set up initial visit. Post Op Total Knee Replacement Instructions Dr. Hussain Rutherford [phone] Your dressing will be changed prior to your discharge. You will be sent home with one additional dressing to be changed on post op day 7 by the home health RN. Your incision was closed with Dermabond (glue). Please allow this to fall off naturally. Do not pick, pull, etc. Please practice good hand hygiene and do not touch your incision in order to prevent infection. You may shower with your dressing but do not submerge in a bath tub. Do not drive or operate machinery until you are released by Dr. Rutherford. Do not walk without a walker for any reason until you are released by Dr. Rutherford. Continue to use your ice machine. Please use a towel or pillow case to protect your skin before applying your ice machine. Do NOT place a pillow under your knee. You may use a pillow from the calf down if needed. This will prevent a flexion contracture postoperatively. CPM: You may begin use of your CPM machine at home if you have been given one pre-operatively. DO NOT USE WHILE YOU ARE SLEEPING. [employer]Tech: If you were given a [employer] Portable Connect System preoperatively, you are to begin use on the day you arrive home postoperatively. Our goal is for you to use the machine 5 times per day. The sessions are very short in the beginning and will progress as you progress. We are able to monitor your progress from afar as well as your pain and other reported symptoms. If you have difficulties with the machine, please call . NOTE: Please attempt to use the machine even when in pain as this will shingles roofer helper your therapy with very gentle motion. Your first post op appointment was sent to you via mail preoperatively. If you have any questions or are unable to make your appointment, please contact our office for scheduling questions. Your medications have been sent to your pharmacy. You have been sent home with pain medication. Please pickle solution maker an over the counter stool softener to prevent constipation due to narcotic use. Please keep this in mind during your postoperative recovery. If you are not experiencing regular bowel movements, please contact our office for further instruction. Please contact our office with any questions/concerns regarding your knee at [phone]. Patient Instructions: Antibiotic Form, Joint Replacement Surgery (GEN), Total Knee Replacement (GEN) Patient Language: Turkish Stand Alone Forms: General Discharge Information Follow-up/Referrals: Hussain Rutherford MD [Physician] - Keep Reg. Scheduled Appt. Discharge Medications: New oxycodone-acetaminophen 5-325 mg Tablet 1 - 2 tablet PO Q4H PRN (Reason: pain) Qty: 40 0RF aspirin 325 mg Tablet,Delayed Release (Dr/Ec) 325 mg PO BID 28 Days Qty: 56 0RF Continued Humira 40 mg/0.8 mL syringe kit 40 mg SUB-Q [id number] Patient Comments: EVERY OTHER WED omega [id number]-fish oil [Fish Oil] 1,000 mg (120 mg-180 mg) capsule 2 cap PO BID Patient Comments: TAKES AROUND 1200 rosuvastatin [Crestor] 20 mg tablet 20 mg PO DAILY Qty: 90 1RF alendronate [Fosamax] 70 mg tablet 70 mg PO WEEKLY Qty: 12 3RF losartan-hydrochlorothiazide [Hyzaar] 100-12.5 mg tablet 1 tablet PO QAM Qty: 90 3RF cholecalciferol (vitamin D3) 125 mcg (5,000 unit) tablet 125 mcg PO DAILY Qty: 90 3RF Discontinued chlorhexidine gluconate [Hibiclens] 4 % liquid 1 applic topical ONCE Qty: 237 0RF Rx Instructions: Cleanse operative extremity, in shower, every day for 1 week prior to surgical procedure. Date of admission: 12/17/24 16:03 Primary Care Provider: Eligio Chapman Admitting Provider: Hussain Rutherford Attending physician on admission: Jb Woody Condition: Stable Quality VTE Prophylaxis VTE prophylaxis: pharmacologic ordered
== END 2024-12-19 16:00 | disposition home health service (06) ==
LOC: ANHSURGERY 16:08 → ANH3MEDSUR 12-18 08:39
PROVIDERS: Nurse Practitioner Family; Admitting Provider Orthopaedic Surgery; PCP Family Medicine; Visit Provider Orthopaedic Surgery
PROC: (CPT 27447; principal; 2024-12-16 07:30)
DX: M17.12 Unilateral primary osteoarthritis, left knee (principal); G89.18 Other acute postprocedural pain; E66.9 Obesity, unspecified; Z68.31 Body mass index [BMI] 31.0-31.9, adult; I10 Essential (primary) hypertension; G47.33 Obstructive sleep apnea (adult) (pediatric); Z79.899 Other long term (current) drug therapy
CPT/HCPCS: 27447; 64447; 36415; 73560; 80048; 82948; 85025; 97110; 97116; 97161; 97165; 97530; 97535; A9270; C1713; C1776; G0378; J0171; J0690; J1100; J1171; J1741; J1885; J2003; J2250; J2270; J2405; J2704; J2795; J3010; J7120

== ENCOUNTER 2025-03-09 15:30 | Outpatient (RCR) | payer MEDICARE, OTHER, SELFPAY ==
--- NOTE | 2025-01-11 07:08 | OPREHPOC ---
Outpatient Therapy Plan of Care This is a Multidisciplinary Plan of Care that may contain components documented by all disciplines (PT, OT, and ST.) PT Problem 1 PT Problem #1 Knowledge Deficit PT Goal 1 Goal / Goal Update [place] with HEP Target Visit 4 PT Problem 2 PT Problem #2 Impaired Range of Motion PT Goal 1 Goal / Goal Update 1. Achieve terminal knee extension ROM 2. Achieve 120 degrees left knee flexion ROM Target Visit 8 PT Problem 3 PT Problem #3 Impaired Strength PT Goal 1 Goal / Goal Update 1. Demonstrate 5/5 gross left knee strength Target Visit 8 PT Problem 4 PT Problem #4 Impaired Gait PT Goal 1 Goal / Goal Update Patient will ambulate with even stride length bilaterally without need for assistive device Target Visit 8
--- NOTE | 2025-01-11 07:09 | PTOPEVAL1 ---
Assessment and note entered by Carroll Sanford, PT Evaluation Information Assessment Status Evaluation Diagnosis Left Total Knee Arthroplasty ICD-10 Condition Codes (PT) Pain in left knee M25.562 Onset 12/16/24 Subjective Information Reports that overall she feels she is doing fairy well. She has been having trouble getting comfortable sleeping at night and still feels presence of swelling in the knee. Has been using a walker mostly but has a cane that she is willing to transition to. Reports she is feeling tightness in the back of the knee and occasionally in her ankle. No concerns at this point with recovery. Assessment PT Clinical Summary Patient presents with signs and symptoms typical of post operative total knee arthroplasty. Patient has been diligent with exercise and understanding importance of continued knee ROM activity. 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 Plan of Care Interventions Gait Training,Manual Therapy,Neuro Re-education, Therapeutic Activities,Therapeutic Exercise PT Services Indicated Yes Treatment Frequency and 2x/week for 8 visits Duration These treatments will address the objective and functional deficits as defined above. The patient will be advanced safely and appropriately in order for the patient to progress towards his/her prior level of function. Additional exercises will be introduced and as well as a comprehensive home exercise program upon discharge, if needed, ?to ensure carryover of functional gains achieved in the clinic. This treatment plan has been reviewed and agreement upon by the patient.
--- NOTE | 2025-02-05 11:26 | OPREHPOC ---
Outpatient Therapy Plan of Care This is a Multidisciplinary Plan of Care that may contain components documented by all disciplines (PT, OT, and ST.) PT Problem 1 PT Problem #1 Knowledge Deficit PT Goal 1 Goal / Goal Update [place] with HEP Target Visit 4 Progress Met PT Problem 2 PT Problem #2 Impaired Range of Motion PT Goal 1 Goal / Goal Update 1. Achieve terminal knee extension ROM 2. Achieve 120 degrees left knee flexion ROM 02/05/25 progressing Target Visit 8 Progress Partially Met PT Problem 3 PT Problem #3 Impaired Strength PT Goal 1 Goal / Goal Update 1. Demonstrate 5/5 gross left knee strength 02/05/25 progressing Target Visit 8 Progress Partially Met PT Problem 4 PT Problem #4 Impaired Gait PT Goal 1 Goal / Goal Update Patient will ambulate with even stride length bilaterally without need for assistive device Target Visit 8 Progress Met PT Goal 2 Goal / Goal Update 02/05/25 updated Patient to improve gait mechanics and stair negotiation to no noted deficit and reciprocal pattern for improved community navigation. Target Visit 6
--- NOTE | 2025-02-05 11:26 | PTOPPROG ---
Assessment and note entered by Trish Vail, PT Evaluation Information Assessment Status Progress Diagnosis Left Total Knee Arthroplasty ICD-10 Condition Codes (PT) Pain in left knee M25.562 Onset 12/16/24 Subjective Information Reports the only time she has real trouble with her knee is stiffness of she has sat for too long. She continues to have tightness and discomfort at night. She reports it is hard to get it straight in the morning. She reports doing her HEP routinely. Overall, the pt reports feeling 75% improvement since first starting OP therapy. She still thinks she needs more balance and stability work in order to feel back to normal. Assessment PT Clinical Summary Patient's condition has improved overall as evidenced by advancements in symptoms, mobility, strength, and overall functional use of the extremity. However, some limitations are still present such as end range knee flexion, single limb stability, stair negotiation, and balance. Patient would benefit from continued skilled PT services to address the above listed impairments and facilitate a return to their PLOF. Plan of Care Interventions Gait Training,Manual Therapy,Neuro Re-education, Therapeutic Activities,Therapeutic Exercise PT Services Indicated Yes Treatment Frequency and 2x/week for 6 visits Duration These treatments will address the objective and functional deficits as defined above. The patient will be advanced safely and appropriately in order for the patient to progress towards his/her prior level of function. Additional exercises will be introduced and as well as a comprehensive home exercise program upon discharge, if needed, ?to ensure carryover of functional gains achieved in the clinic. This treatment plan has been reviewed and agreement upon by the patient.
--- NOTE | 2025-03-09 16:03 | PTOPDC ---
Assessment and note entered by Joby Finney PT Evaluation Information Assessment Status Discharge Diagnosis Left Total Knee Arthroplasty ICD-10 Condition Codes (PT) Pain in left knee M25.562 Onset 12/16/24 Subjective Information Pt states she feels fully recovered. Pt notes she feels some stiffness when going down stairs but has no other concerns. Pt states she plans continue exercises at home. Reported Pain Level Pain Score 1: Self Report Assessment PT Clinical Summary Patient's L knee has improved overall as evidenced by decreased symptoms and increased mobility, strength, and overall functional use of the extremity. Patient has met therapy goals. Patient to discharge from physical therapy this date and continue with updated home exercise program as instructed. Patient to contact physical therapist or primary care provider if questions or concerns arise. Plan of Care PT Services Indicated No
== END 2025-03-10 08:00 | disposition home or self-care (01) ==
LOC: ANHGOSHPT 15:30
PROVIDERS: PCP Family Medicine; Visit Provider Orthopaedic Surgery
DX: Z47.1 Aftercare following joint replacement surgery (principal); Z96.652 Presence of left artificial knee joint
CPT/HCPCS: 97110; 97112; 97161; 97530

== ENCOUNTER 2025-05-18 00:42 | Day surgery (SDC) | payer MEDICARE, OTHER, SELFPAY ==
[2025-05-03 13:07] VITALS: BMI 31.4
--- OUTSIDE RECORDS SUMMARY | 2025-05-18 00:45 | XMS_ITS | Clinical Summary ---
Author Organization [facility] Address [address] [place] [address] Care Team Providers Care Cartographic Engineer Name Role Phone Eligio Chapman MD Primary Care Provider [phone] Source Comments [facility],non-owned Affiliates and Associated Physician Practices is amultiple site organization consisting of ambulatory clinics and hospital sitesin [place], [place], [place] and [place]. This disclosure is being madepursuant to the Care Everywhere program and may not contain all information available regarding this patient. 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[employer] Gender Identity Not on file Sexual Orientation Not on file Plan of Treatment Upcoming Encounters Date Type Department Care Team (Late st Contact Info) Description 09/23/2025 1:20 PM [employer] Office Visit [facility] - Dermatology [address] [place] [address], [facility] [place] [phone] Didi Blandon MD [address] [place] [address] [place] [phone] Health Maintenance Due Date Last Done Comments [...] 2006 ZOSTER VACCINE (1 of 2) 2006 DEPRESSION SCREENING 08/26/2024 COVID-19 VACCINE (1 - 2023-2 5 season) 2025 INFLUENZA VACCINE (#1) 2025 08/10/2006 Respiratory Syncytial Virus (RSV) Vaccine Pt: or [...] on patient's age to complete this topic Insurance MEDICARE [facility] Care Teams Cartographic Engineer Relationship Specialty Start Date End Date Eligio Chapman MD [address] [place] [address] PCP - General 07/09/22
--- OUTSIDE RECORDS SUMMARY | 2025-05-18 00:45 | XMS_ITS | Encounter Summary ---
Author Organization [facility] Address [address] [place] [address] Care Team Providers Care Tube Machine Operator Helper Name Role Phone Eligio Chapman MD Primary Care Provider [phone] Reason for Visit * Reason Onset Date Comments MEDICATION REFILL 01/05/2024 Encounter Details Date Type Department Care Team (Late Contact Info) Description 01/05/2024 Refill [facility] - Dermatology [address] [place] [phone] Didi Blandon MD [address] [place] [address] [place] [phone] MEDICATION REFILL Social History Tobacco Use Types Packs/Day Years Used Date Smoking Tobacco: Never Assessed Comments Unknown Sex and Gender Information Value Date Recorded Sex Assigned at Not on file 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 Gender Identity Not on file Sexual Orientation Not on file documented as of this encounter Plan of Treatment Upcoming Encounters Date Type Department Care Team (Late Contact Info) Description 09/23/2025 1:20 PM SAMPLE GRADER Office Visit [facility] Dermatology [address] [place] [phone] Didi Blandon MD [address] [place] [address] [place] [phone] documented as of this encounter Visit Diagnoses Diagnosis Psoriasis Other psoriasis documented in this encounter Care Teams Tube Machine Operator Helper Relationship Specialty Start Date End Date Eligio Chapman MD [address] [place] [address] PCP - General 07/09/22 documented as of this encounter
[2025-05-18 10:30] VITALS: BP 164/77; PULSE 99; RESP 18; TEMP 36.7; O2SAT 98
[2025-05-18] MEDS: LACTATED RINGERS 1,000 ML 150 ML IV CONT (10:40)
--- NOTE | 2025-05-18 10:58 | WPDANESEPPF ---
Anes - Initial Pre Proc Eval Procedure: Operation Date: 05/18/25 11:30 Proposed Procedures p Diagnostic Colonoscopy - Feliz Triplett MD Date/Time: 05/18/25 10:58 Surgeon: Feliz Triplett MD Pre Op Diagnosis: Other fecal abnormalities Patient Data Age: 70 Gender: F Height: 1.52 m Weight: 72.1 kg Last Vital Signs Temp 98.1 F 05/18/25 10:30 Pulse 99 05/18/25 10:30 Resp 18 05/18/25 10:30 BP 164/77 H 05/18/25 10:30 Pulse Ox 98 05/18/25 10:30 O2 Del Method Room Air 05/18/25 10:30 Allergies Allergy/AdvReac Type Severity Reaction Status Date / Time No Known Allergies Allergy Unknown Verified 05/18/25 10:25 Home Medications ?Medication ?Instructions ?Recorded ?Confirmed ?Type adalimumab 40 mg/0.8 mL 40 mg subcut [id number] 09/21/19 05/18/25 History subcutaneous syringe kit (Humira) omega 4-lly-wae-fish oil 1,000 mg 2 cap PO BID 07/24/22 05/18/25 History (120 mg-180 mg) capsule (Fish Oil) alendronate 70 mg tablet (Fosamax) 70 mg PO WEEKLY #12 tabs 08/24/24 05/18/25 Rx losartan 100 1 tablet PO QAM hypertension #90 08/24/24 05/18/25 Rx mg-hydrochlorothiazide 12.5 mg tabs tablet (Hyzaar) cholecalciferol (vitamin D3) 125 125 mcg PO DAILY #90 tabs 09/28/24 05/18/25 Rx mcg (5,000 unit) tablet rosuvastatin 20 mg tablet (Crestor) 20 mg PO DAILY #90 tabs 01/06/25 05/18/25 Rx acetaminophen 650 mg 650 mg PO Q12H PRN pain 02/08/25 05/03/25 History tablet,extended release (Tylenol Arthritis Pain) Patient hx anesthesia problems: none Family hx anesthesia problems: none Results Review: All pre-operative results and documents have been reviewed as part of the pre-operative evaluation. [facility] Past Medical History Medical History DJD (degenerative joint disease) of knee DONNA (obstructive sleep apnea) Medial meniscus tear Psoriasis Hypersomnia ROYAL (dyspnea on exertion) LBBB (left bundle branch block) Preop cardiovascular exam Murmur Abnormal EKG Preoperative clearance Psoriasis Kidney stones Abnormality of heart beat Hypertension Wears glasses History of adverse reaction to anesthesia Acute meniscal tear of knee Left knee pain BMI 30.0-30.9,adult Essential (primary) hypertension Follicle cyst Ocular hypertension, unspecified eye Surgical History Surgical History H/O knee surgery History of endometrial ablation History of cholecystectomy History of extraction of renal calculus Family History Family History Father Alzheimers disease Mother Diabetes mellitus Heart disease Sibling Diabetes mellitus Gout COVID-19 Sibling Hypertension Other Arthritis S/P total knee arthroplasty Social History Social History Smoking status: Former smoker Second hand tobacco smoke exposure: No Alcohol intake: never Substance use: never Substance use type: does not use Do You Feel Safe in your Home?: Yes Lack of Transportation: No Lack of Food: Never True Current Housing: I Have Housing Concerned About Future Housing: No Difficulty Paying Gas/Electric Bills: No Difficulty Paying for Meds: No Currently Unemployed: No Education: High School Diploma/GED Difficulty w/ Childcare or Family Care: No Living arrangements: with family Additional living arrangements comments: [facility] Occupation/Education: occupation Additional occupation/education comments: [employer]. Gender identity (if verbalized by the patient): Female Spiritual care concerns: No Anes - Eval Final PreProcedure Day of Procedure 05/18/25 10:58 Patient weight: obese Lungs: normal air movement Airway: Mallampati scale class II Neurological: alert and oriented Last oral intake: >/= 8 hours ASA classification: II Emergent: no Anesthetic plan: proceed Anesthesia type and monitoring: general GIVS and standard monitoring Results Review: All pre-operative results and documents have been reviewed as part of the pre-operative evaluation. HTN, hyperlipidemia, LBBB, stress test 2024 nml. Informed Consent: The patient's anesthetic plan and its attendant risks and benefits were discussed with the patient/family/POA. Questions were solicited and answers provided to the satisfaction of the patient/family/POA.
--- NOTE | 2025-05-18 11:19 | PM.IMHP ---
H&P: HPI History of Present Illness Date/Time: 05/18/25 11:19 Chief Complaint: Positive Cologuard test Narrative: patient referred For colonoscopy due to the recent finding of a positive Cologuard test on routine screening. her last colonoscopy was 10 years ago. There is no family history of colorectal cancer. Review of Systems Review of Systems: All systems reviewed & are unremarkable except as noted in HPI and below PMFSH Past Medical History Medical History DJD (degenerative joint disease) of knee DONNA (obstructive sleep apnea) Medial meniscus tear Psoriasis Hypersomnia ROYAL (dyspnea on exertion) LBBB (left bundle branch block) Preop cardiovascular exam Murmur Abnormal EKG Preoperative clearance Psoriasis Kidney stones Abnormality of heart beat Hypertension Wears glasses History of adverse reaction to anesthesia Acute meniscal tear of knee Left knee pain BMI 30.0-30.9,adult Essential (primary) hypertension Follicle cyst Ocular hypertension, unspecified eye Surgical History Surgical History H/O knee surgery History of endometrial ablation History of cholecystectomy History of extraction of renal calculus Family History Family History Father Alzheimers disease Mother Diabetes mellitus Heart disease Sibling Diabetes mellitus Gout COVID-19 Sibling Hypertension Other Arthritis S/P total knee arthroplasty Social History Social History Smoking status: Former smoker Second hand tobacco smoke exposure: No Alcohol intake: never Substance use: never Substance use type: does not use Do You Feel Safe in your Home?: Yes Lack of Transportation: No Lack of Food: Never True Current Housing: I Have Housing Concerned About Future Housing: No Difficulty Paying Gas/Electric Bills: No Difficulty Paying for Meds: No Currently Unemployed: No Education: High School Diploma/GED Difficulty w/ Childcare or Family Care: No Living arrangements: with family Additional living arrangements comments: [facility] Occupation/Education: occupation Additional occupation/education comments: [employer]. Gender identity (if verbalized by the patient): Female Spiritual care concerns: No Meds Home Medications and Allergies Home Medications ?Medication ?Instructions ?Recorded ?Confirmed ?Type adalimumab 40 mg/0.8 mL 40 mg subcut [id number] 09/21/19 05/18/25 History subcutaneous syringe kit (Humira) omega 6-cxn-qch-fish oil 1,000 mg 2 cap PO BID 07/24/22 05/18/25 History (120 mg-180 mg) capsule (Fish Oil) alendronate 70 mg tablet (Fosamax) 70 mg PO WEEKLY #12 tabs 08/24/24 05/18/25 Rx losartan 100 1 tablet PO QAM hypertension #90 08/24/24 05/18/25 Rx mg-hydrochlorothiazide 12.5 mg tabs tablet (Hyzaar) cholecalciferol (vitamin D3) 125 125 mcg PO DAILY #90 tabs 09/28/24 05/18/25 Rx mcg (5,000 unit) tablet rosuvastatin 20 mg tablet (Crestor) 20 mg PO DAILY #90 tabs 01/06/25 05/18/25 Rx acetaminophen 650 mg 650 mg PO Q12H PRN pain 02/08/25 05/03/25 History tablet,extended release (Tylenol Arthritis Pain) Allergies Allergy/AdvReac Type Severity Reaction Status Date / Time No Known Allergies Allergy Unknown Verified 05/18/25 10:25 Vital Signs Vital Signs - 24 hr 05/18/25 10:30 Temperature 98.1 F Pulse Rate 99 Respiratory Rate 18 Blood Pressure 164/77 H Pulse Oximetry 98 Oxygen Delivery Room Air Exam Const: General: cooperative and healthy appearing Resp: Effort & Inspection: normal respiratory effort and able to speak in complete sentences Auscultation: clear to auscultation bilaterally Cardio: Rate: regular rate Rhythm: regular rhythm GI: Inspection: normal to inspection GI Palp: No No hepatosplenomegaly present Auscultation: normal bowel sounds Rectal Exam: deferred Skin: General skin exam: normal color Psych: Appearance: grossly normal Mental Status: mental status grossly normal Assessment and Plan Assessment and plan (1) Positive colorectal cancer screening using Cologuard test: Code(s): R19.5 - Other fecal abnormalities Status: Acute Assessment and Plan: The patient is deemed a good candidate for the procedure. Consent signed. Will proceed.
[2025-05-18] MEDS: SIMETHICONE ORAL SUSPENSION 20 MG/0.3 ML 30 ML BOTTLE 0.6 ML IRRIGATION (11:27)
[2025-05-18 11:38] VITALS: BP 129/69; PULSE 84; RESP 24; O2SAT 98
[2025-05-18 11:48] VITALS: BP 132/59; PULSE 79; RESP 15; O2SAT 100
--- NOTE | 2025-05-18 11:58 | S_PTH ---
PATIENT: Arti Rodas LOC: [facility] U#:[id number] AGE/SX: 70/F ROOM: RE05/18/[address]: Feliz Triplett MD : [id number] BED: DIS: 05/18/2025 SPEC #: [id number] RECD: 05/18/25 11:59 STATUS: FLAKO REQ #: [id number] MARISOL: 05/18/25 11:[address]: Feliz Triplett DEPT: [facility] Surgical RECD BY: Sam Hickman ENTERED: 05/18/25 12:00 SP TYPE: Surgical OTHR DR: Eligio Chapman MD Tissues: A - Colon Polypectomy Procedures: Hematoxylin and Eosin Stain Gross and Microscopic Level 4
== END 2025-05-18 12:07 | disposition home or self-care (01) ==
PROVIDERS: PCP Family Medicine; Referring Provider Physician Assistant Medical; Visit Provider Internal Medicine Gastroenterology
PROC: 0DJD8ZZ Inspection of Lower Intestinal Tract, Via Natural or Artificial Opening Endoscopic (ICD-10-PCS; CPT 45378; principal; 2025-05-18 11:30)
DX: K63.5 Polyp of colon (principal); K64.8 Other hemorrhoids; K57.30 Diverticulosis of large intestine without perforation or abscess without bleeding; I10 Essential (primary) hypertension; E78.5 Hyperlipidemia, unspecified; I44.7 Left bundle-branch block, unspecified; G47.33 Obstructive sleep apnea (adult) (pediatric); G47.00 Insomnia, unspecified; R01.1 Cardiac murmur, unspecified; L40.9 Psoriasis, unspecified; I49.9 Cardiac arrhythmia, unspecified; M17.10 Unilateral primary osteoarthritis, unspecified knee; H40.059 Ocular hypertension, unspecified eye; E66.9 Obesity, unspecified; Z68.31 Body mass index [BMI] 31.0-31.9, adult; Z79.620 Long term (current) use of immunosuppressive biologic; Z79.83 Long term (current) use of bisphosphonates; Z98.890 Other specified postprocedural states; Z98.891 History of uterine scar from previous surgery; Z90.49 Acquired absence of other specified parts of digestive tract; Z87.891 Personal history of nicotine dependence; Z87.442 Personal history of urinary calculi; Z82.49 Family history of ischemic heart disease and other diseases of the circulatory system
CPT/HCPCS: 45385; 88305; J2003; J2405; J2704; J7120